=== PATIENT | male | born 1945 | race Caucasian/White ===

== ENCOUNTER → 2016-05-07 | Outpatient (CLI) | payer MEDICARE, OTHER ==
[~2016-05-07] MED LIST: CALMOSEPTINE OINTMENT 3.5 G PACKET TOP ONE
== END ==
LOC: NWCC 08:44
PROVIDERS: ATTEND Surgery
DX: G60.9 Hereditary and idiopathic neuropathy, unspecified (principal); L97.412 Non-pressure chronic ulcer of right heel and midfoot with fat layer exposed
CPT/HCPCS: A6209; A9270; G0463

== ENCOUNTER → 2016-05-28 | Outpatient (CLI) | payer MEDICARE, OTHER | LOC: NWCC 08:55 | PROVIDERS: ATTEND Surgery | DX: G60.9 Hereditary and idiopathic neuropathy, unspecified (principal); L97.412 Non-pressure chronic ulcer of right heel and midfoot with fat layer exposed | CPT/HCPCS: 11055; A6209; A9270 ==

== ENCOUNTER → 2016-06-05 | Outpatient (CLI) | payer MEDICARE, OTHER | LOC: NWCC 10:52 | PROVIDERS: ATTEND Internal Medicine | DX: G90.09 Other idiopathic peripheral autonomic neuropathy (principal); L97.412 Non-pressure chronic ulcer of right heel and midfoot with fat layer exposed; B96.89 Other specified bacterial agents as the cause of diseases classified elsewhere; L53.9 Erythematous condition, unspecified | CPT/HCPCS: 87070; 87075; 87077; 87147; 87186; 87205; A6209; A9270; G0463 ==

== ENCOUNTER 2017-06-24 12:58 | Inpatient (IN) ==
[2017-06-24] MEDS ORDERED: ONDANSETRON 4 MG/2 ML INJECTION IVP PRN (13:04)
[2017-06-24] MEDS ORDERED: METOCLOPRAMIDE 10mg/2ml INJECTION IVP PRN (14:15)
--- NOTE | 2017-06-24 14:54 | General Surgery Consult Note ---
Consult date: 06/25/17 Attending Physician: Alonso Ferrell MD [facility] Patient Stated Medical History Peripheral Neuropathy Yes: knees down and hands Cataracts Yes Hypertension Yes Other Cardiology Yes: chamber ? Gastroesophageal Reflux Yes Disease Anemia Yes Other Musculoskeletal Yes: neuropathy, RLS Herpes Yes: 8 10 yrs ago Clinic Medical History (Last Updated 06/09/17 @ 16:47 by DEJAN Bland) Hypothyroidism (Chronic Medical) Anemia (Chronic Medical) Coronary arteriosclerosis (Chronic Medical) Diabetes (Chronic Medical) HTN (hypertension) (Chronic Medical) Hyperlipidemia (Chronic Medical) Hypogonadism (Chronic Medical) Insomnia (Chronic Medical) Mitral valve disorder (Chronic Medical) Peripheral nerve disease (Chronic Medical) Spinal stenosis (Chronic Medical) Vitamin D deficiency (Chronic Medical) Surgical History: -Cholecystectomy, choledocholithiasis transferred to [facility] for surgery 02/12/2016. -Foot/Toes Procedure, Removal of lateral sesamoid bone right 1st TMP joint, 10/2002 Dr. Martínez. -Right ankle surgery 2012 Dr. Kathy Hill. -Hammertoe operations May 2013 Dr. Kathy Hill. -Left second third and fifth flexor tenotomy and pinning, left fourth toe debridement, and additional work 10/07/2014 Dr. Kathy Hill. -Left first metatarsophalangeal arthrodesis 02/01/2015 Dr. Kathy Hill. -Additional left foot debridements 02/22/2015 Dr. Kathy Hill. -Left metatarsophalangeal joint debridement and delayed primary closure 02/27/2015 Dr. Kathy Hill with prior diagnosis of pseudomonas osteomyelitis. -Left Inguinal Hernia Repair Bessie. -Right inguinal hernia repair 09/14/2012 Sahil. - Colonoscopy internal hemorrhoids 10/20/2000 Dr. Mendoza. -Colonoscopy, internal and external hemorrhoids and diverticulosis 02/12/2011 Dr. La. -Heart catheter, mitral valve prolapse and minimal coronary artery disease 10/22/1995, Dr. Avni Foster, [facility]. Family History: Family History (Last Updated 06/09/17 @ 16:53 by DEJAN Bland) Father Coronary arteriosclerosis Mother Stroke Maternal Grandfather Prostate cancer Paternal Grandfather Diabetes - Social History Smoking status: Former smoker Household members: spouse Medications Home Medications Medication Instructions Recorded Confirmed Type Bystolic (nebivolol) 5 mg tablet 5 mg PO DAILY 06/09/17 06/24/17 History Lipitor (atorvastatin) 20 mg tablet 20 mg PO DAILY 06/09/17 06/24/17 History Neurontin (gabapentin) 600 mg 1,200 mg PO HS tab 06/09/17 06/24/17 History tablet [place] 5 mg-acetaminophen 325 mg 1 tab PO Q6H PRN 06/09/17 06/24/17 History tablet Prilosec (Omeprazole) 40 mg 40 mg PO DAILY 06/09/17 06/24/17 History capsule,delayed release Testone CIK (testosterone 200 mg IM Q2WKS each 06/09/17 06/24/17 History cypionate) 200 mg/mL intramuscular kit Vasotec (enalapril maleate) 20 mg 20 mg PO DAILY 06/09/17 06/24/17 History tablet Voltaren (Diclofenac) 1 % topical 2 g TOP QID 06/09/17 06/24/17 History gel aspirin 81 mg tablet,delayed 81 mg PO DAILY 06/09/17 06/24/17 History release felodipine ER 5 mg tablet,extended 5 mg PO DAILY 06/09/17 06/24/17 History release 24 hr fentanyl 50 mcg/hr transdermal 1 patch TD Q72H 06/09/17 06/24/17 History patch levothyroxine 200 mcg tablet 200 mcg PO DAILY 06/09/17 06/24/17 History multivitamin,ip-ogho-bwjoxasm 1 tab PO DAILY 06/09/17 06/24/17 History tablet pramipexole 1 mg tablet 1 mg PO HS 06/09/17 06/24/17 History sildenafil 100 mg tablet 100 mg PO DAILY PRN 06/09/17 06/24/17 History Gabapentin [Gabapentin] 300 mg PO TID 06/12/17 06/24/17 History Levofloxacin [Levaquin] 750 mg PO DAILY 06/12/17 06/24/17 History Metoclopramide HCl [Reglan] 10 mg PO QID #30 tab 06/12/17 06/24/17 Rx metoclopramide 10 mg tablet 10 mg PO QID 30 Days #120 tab 06/20/17 06/20/17 Rx Allergies Allergy/AdvReac Type Severity Reaction Status Date / Time No Known Allergies Allergy Verified 06/12/17 18:36 Review of Systems 10-point ROS: negative except for HPI and the following: - General General: Present: chills, unexplained weight loss, other (fatigue) - Eyes/Ears/Nose/Throat Eyes: Present: vision problems (corrective lenses) - Respiratory Respiratory: Present: difficulty breathing (with exertion) - Gastrointestinal Gastrointestinal: Present: nausea, diarrhea, vomiting, other (GERD) - Genitourinary Additional comments: Slow stream - Musculoskeletal Musculoskeletal: Present: joint pain - Neurological Neurological: Present: muscle weakness, numbness - Vital Signs Last Vital Signs Temp 96.9 F 06/24/17 14:01 Pulse 62 06/24/17 14:01 Resp 18 06/24/17 14:01 BP 142/80 H 06/24/17 14:01 Pulse Ox 95 06/24/17 14:01 - Laboratory Result Diagrams: 06/24/17 14:16 06/24/17 14:16 General Surgery Results - Results Labs: 06/24/17 14:16 06/24/17 14:16
--- NOTE | 2017-06-24 14:56 | History & Physical Report ---
History of Present Illness Date: 06/24/17 Chief complaint: abdominal pain HPI: Jori Cloud is a pleasant 71-year-old male patient of Dr. Baxter who was directly admitted today, 06/24/17, for further evaluation of abdominal pain. He reports that over the past 3 weeks, he has had a 15 pound, unintentional weight loss. He also reports epigastric fullness with frequent nausea, vomiting and diarrhea. He denies any abdominal pain but does admit to increased bloating and distention. He also states that he has had increased episodes of hiccups and belching. As result of his abdomen feeling "full all the time" as well as his nausea and vomiting, he has had very poor oral intake. He denies any other illnesses. No fevers, chills, chest pain, shortness of breath or dysuria. CT abdomen/pelvis on 06/06/17 revealed significant food products in the stomach concerning for delayed emptying. He was then seen in clinic with Dr. Baxter on 06/20/17 and scheduled for an upper endoscopy for 06/26/17. Subsequently, he returned to clinic this morning, 06/24/17, for re-evaluation of his chronic right heel ulceration and Dr. Baxter expressed concern because of "how bad he looked", requesting that he be admitted to the hospital. He has been following with Dr. Baxter recently for treatment of a chronic right heel ulceration for which he has been on prolonged treatment of various antibiotics, which are all now complete. Dr. Ferrell was contacted and he was directly admitted to observation status for further evaluation including imagining and endoscopy. He is seen immediately upon arrival in his room with his and nurse at the bedside. He denies any current complaints or concerns. He does admit to some dry heaving today but denies any diarrhea or vomiting. He states that his symptoms have improved slightly with the addition of Reglan on 06/20/17. Labs were obtained on arrival and revealed mild anemia (Hgb 11.3) and otherwise unremarkable. Review of Systems All systems PM: 10-point ROS was reviewed, no additional remarkable complaints except - Constitutional Constitutional: Present: weakness, weight loss. Absent: chills, fatigue, fever( s) Comments: Decreased appetite with poor oral intake; upper abdominal fullness. - EENMT Eyes: Absent: change in vision, photophobia Ears: Absent: ear pain Balance: Absent: vertigo, falling to one side Nose: Absent: nosebleeds Mouth/Throat: Present: dry mouth. Absent: sore throat, changes in swallowing - Cardiovascular Cardiovascular: Absent: chest pain, palpitations, syncope, dyspnea on exertion, orthopnea, edema Rhythm: Absent: regular rhythm Vascular: Absent: pallor of an extermity, pedal edema, unilateral swelling - Respiratory Respiratory: Absent: cough, dyspnea, hemoptysis, dyspnea on exertion, wheezing - Gastrointestinal Gastrointestinal: Present: change in bowel habits, diarrhea, dyspepsia, early satiety, nausea, vomiting. Absent: abdominal pain, dysphagia, hematemesis, melena - Genitourinary Genitourinary: Absent: dysuria, flank pain, hematuria - Musculoskeletal Musculoskeletal: Present: muscle weakness. Absent: abnormal gait, back pain, deformity - Integumentary/Breasts Integumentary: Absent: rash - Neurological Neurological: Present: weakness. Absent: abnormal gait, abnormal movements, abnormal speech, dizziness, focal weakness - Psychiatric Psychiatric: Absent: anxiety, depression - Endocrine Endocrine: Absent: flushing, heat intolerance, palpitations - Hematologic/Lymphatic Hematologic/Lymphatic: Absent: easy bruising - Allergic/Immunologic Allergic/Immunologic: Absent: seasonal rhinorrhea Past Medical History Medical History: Medical History (Last Updated 06/24/17 @ 15:00 by IRMA Day) Chronic heel ulcer GERD (gastroesophageal reflux disease) Peripheral neuropathy, idiopathic Anemia Coronary arteriosclerosis HTN (hypertension) Hyperlipidemia Hypogonadism Hypothyroidism Insomnia Mitral valve disorder Spinal stenosis Vitamin D deficiency Surgical History: Cholecystectomy, 02/12/2016. Foot/Toes Procedure, Removal of lateral sesamoid bone right 1st TMP joint, 10/2002. Left Inguinal Hernia Repair 12/16/2014 Bessie. Hernia Repair, Sahil. Colonoscopy, 02/12/2011 Dr. La. Colonoscopy, 10/20/2000. Cardiac Surgery 10/22/1995, Dr. Avni Foster, [facility]. Family History: Family History Father - , 60 Coronary arteriosclerosis MS Mother - , 98 Stroke Maternal Grandfather Prostate cancer Paternal Grandfather Diabetes Family History: As Above - Social History Smoking status: Former smoker (quit 1994) Substance use type: does not use Alcohol intake frequency: holidays/special occasions only Housing: house Household members: spouse service: No Current occupational status: retired Does patient use chewing tobacco?: No Current residence: Apartment/Private Home Social history: PCP - Dr. Hewitt. Medications Home Medications Medication Instructions Recorded Confirmed Type Bystolic (nebivolol) 5 mg tablet 5 mg PO DAILY 06/09/17 06/24/17 History Lipitor (atorvastatin) 20 mg tablet 20 mg PO DAILY 06/09/17 06/24/17 History Neurontin (gabapentin) 600 mg 1,200 mg PO HS tab 06/09/17 06/24/17 History tablet [place] 5 mg-acetaminophen 325 mg 1 tab PO Q6H PRN 06/09/17 06/24/17 History tablet Prilosec (Omeprazole) 40 mg 40 mg PO DAILY 06/09/17 06/24/17 History capsule,delayed release Testone CIK (testosterone 200 mg IM Q2WKS each 06/09/17 06/24/17 History cypionate) 200 mg/mL intramuscular kit Vasotec (enalapril maleate) 20 mg 20 mg PO DAILY 06/09/17 06/24/17 History tablet Voltaren (Diclofenac) 1 % topical 2 g TOP QID 06/09/17 06/24/17 History gel aspirin 81 mg tablet,delayed 81 mg PO DAILY 06/09/17 06/24/17 History release felodipine ER 5 mg tablet,extended 5 mg PO DAILY 06/09/17 06/24/17 History release 24 hr fentanyl 50 mcg/hr transdermal 1 patch TD Q72H 06/09/17 06/24/17 History patch levothyroxine 200 mcg tablet 200 mcg PO DAILY 06/09/17 06/24/17 History multivitamin,hh-noik-tecztodf 1 tab PO DAILY 06/09/17 06/24/17 History tablet pramipexole 1 mg tablet 1 mg PO HS 06/09/17 06/24/17 History sildenafil 100 mg tablet 100 mg PO DAILY PRN 06/09/17 06/24/17 History Gabapentin [Gabapentin] 300 mg PO TID 06/12/17 06/24/17 History Levofloxacin [Levaquin] 750 mg PO DAILY 06/12/17 06/24/17 History Metoclopramide HCl [Reglan] 10 mg PO QID #30 tab 06/12/17 06/24/17 Rx metoclopramide 10 mg tablet 10 mg PO QID 30 Days #120 tab 06/20/17 06/20/17 Rx Allergies Allergy/AdvReac Type Severity Reaction Status Date / Time No Known Allergies Allergy Verified 06/12/17 18:36 Exam Vital Signs: Temperature 96.9 F 06/24/17 14:01 Pulse Rate 62 06/24/17 14:01 Respiratory Rate 18 06/24/17 14:01 Blood Pressure 142/80 H 06/24/17 14:01 Pulse Oximetry 95 06/24/17 14:01 Height/Weight/BMI: Height 5 ft 8 in Weight 159 lb 13.362 oz Body Mass Index 24.3 Comments: Patient sitting up in bed with his and nursing at the bedside. - Constitutional Present: no acute distress, well nourished, well developed, thin, cooperative - Routine HEENT Exam Head: Present: normocephalic, atraumatic Eye: Present: PERRL. Absent: conjunctival icterus ENT: Present: mucous membranes dry (tacky) - Routine Neck Exam Present: supple, full ROM, trachea midline - Routine Chest/Breast/Axilla Exam Chest wall: Absent: tenderness, pacemaker - Routine Respiratory Exam Present: CTA bilaterally. Absent: respiratory distress, wheezes - Routine Cardiovascular Exam Present: RRR, S1, S2, murmur - Routine Abdominal Exam Present: soft, normoactive bowel sounds, non tender, distended. Absent: rebound , guarding - Routine Extremities Exam Present: edema (trace), full ROM, pulses intact. Absent: cyanosis - Routine Back/Spine/Pelvis Exam Back/Spine: Present: full ROM. Absent: vertebral tenderness - Routine Skin Exam Present: dry, warm Comments: Afebrile; bandage to right heel present, clean and dry covering chronic ulceration - not visualized on exam. - Routine Neurological Exam Present: alert, oriented X3, CN II-XII intact, moving all extremities, hearing grossly intact, normal speech - Routine Psychiatric Exam Present: normal affect, cooperative, good insight, good judgment Results - Labs CBC & Chem 7: 06/24/17 14:16 06/24/17 14:16 Assessment and Plan Assessment and Plan: Assessment Nausea and vomiting - Questionable gastroparesis with delayed gastric emptying vs gastric outlet obstruction. Unintentional weight loss Idiopathic peripheral neuropathy Hypothyroidism Chronic anemia CAD Hypertension Hyperlipidemia Hypogonadism Insomnia Mitral valve disorder Spinal stenosis Vitamin D deficiency GERD Chronic right heel ulceration Plan Admit to observation status under the care of Dr. Ferrell. Consult Dr. Baxter for surgical evaluation and anticipated endoscopy. NPO status in anticipation of possible surgical evaluation. Initiate NS 100cc/ hr for hydration. Will obtain upper GI/KUB small bowel series per Dr. Baxter with NG tube placement. Labs on admission relatively unremarkable. Hgb 11.3. Will check B12. Monitor closely. No signs of bleeding on exam. History of anemia. Patient denies history of diabetes. Will check A1c now in addition to TSH. Monitor BGMs and sliding scale insulin as needed. Zofran and Reglan for nausea/vomiting. CRP, lipase and TSH pending. Prealbumin borderline mild protein calorie malnutrition. Consider dietary consult prior to discharge. Will continue home medications. Hold home ASA in anticipation of possible endoscopy and current anemia. Monitor blood pressure closely. Recheck labs in AM to monitor blood counts, electrolytes and renal function. Upon discharge, patient's care will be returned to his PCP, Dr. Hewitt and Dr. Baxter. Patient requests to be a Full CODE. DVT Prophylaxis: SCD's GI Prophylaxis: Protonix Resuscitation Status: Full Code - Time spent with patient Time with patient PN: 70 minutes - Physician Narrative Physician: Alonso Ferrell MD Narrative: Date: 06/24/17 Time: 1705 Have independently interviewed and examined pt. Chart reviewed. Case discussed with Dr Baxter and my PA. Care plan developed with my supervision; agree with above. Over the past 3 weeks has had persistent nausea with vomiting. Feels full to ab. No appetite. With oral intake, feels like he fills up very quick and then developed emesis. Typically ab feels less full/bloated post emesis. Passing stools, notes less flatus. Burping more. Hiccups for the last week. Reports 15 pound weight loss-clothes not fitting well. Urinating as normal. Not SOA, but harder to take deep breath due to ab fullness. No f/c. Feeling more tired, weak , and rund down in general--less strength since eating less. Lungs: decreased, no distress CV: regular AB: soft slight distention BS decreased EXT: trace edema MSE: awake alert appropriate Plan: OBS admission. IVF to help maintain hydration. Protonix IV for GI protection. Consult with Dr Baxter - likely need EGD, will check UGI/SBFT. NG ordered by Dr Baxter for bowel decompression. Monitor lab. Hospital Course Summary Disclaimer: The visit summary below is not to be considered part of the above Progress Note. Hospital Course: Plan - 06/24/17: Admit to observation status under the care of Dr. Ferrell. Consult Dr. Baxter for surgical evaluation and anticipated endoscopy. NPO status in anticipation of possible surgical evaluation. Initiate NS 100cc/ hr for hydration. Will obtain upper GI/KUB small bowel series per Dr. Baxter with NG tube placement. Labs on admission relatively unremarkable. Hgb 11.3. Will check B12. Monitor closely. No signs of bleeding on exam. History of anemia. Patient denies history of diabetes. Will check A1c now in addition to TSH. Monitor BGMs and sliding scale insulin as needed. Zofran and Reglan for nausea/vomiting. CRP, lipase and TSH pending. Prealbumin borderline mild protein calorie malnutrition. Consider dietary consult prior to discharge. Will continue home medications. Hold home ASA in anticipation of possible endoscopy and current anemia. Monitor blood pressure closely. Recheck labs in AM to monitor blood counts, electrolytes and renal function. Upon discharge, patient's care will be returned to his PCP, Dr. Hewitt and Dr. Baxter. Patient requests to be a Full CODE.
[2017-06-24] MEDS: NS 1,000 ML IV SCH (15:01)
[2017-06-24] MEDS ORDERED: DIATRIZOATE MEGLUMINE/SOD. (66%/10%) 120ml SOLN ONE (15:03)
[2017-06-24] MEDS: GABAPENTIN 300 MG CAPSULE PO SCH (17:13)
[2017-06-24] MEDS: PANTOPRAZOLE 40 MG INJECTION IVP SCH (17:26)
[2017-06-24] MEDS: METOCLOPRAMIDE 10mg/2ml INJECTION IVP SCH ×2 (17:30→21:46)
--- NOTE | 2017-06-24 17:30 | Consultation ---
DATE OF CONSULTATION 06/24/2017 FINDINGS Mr. Cloud was seen earlier today through the wound center in regards to chronic ulcer involving his foot. I had seen the patient last week in my surgical practice as a result of his history for ongoing nausea, vomiting and significant unintentional weight loss. The patient informed me this morning that he was "not doing well". He informed me that over the weekend he had an episode of fairly significant nausea and vomiting. He states that he was able to eat "a little bit" over the weekend. He states that recently he has been having a fair amount of ongoing hiccups. He informs me that he was feeling significantly worse. He denied, however, severe abdominal pain. He states that he was having more "heartburn and dry heaves". PAST MEDICAL HISTORY Performed by my nurse practitioner, Ehsan Glover. PAST SURGICAL HISTORY Performed by my nurse practitioner, Ehsan Glover. MEDICATIONS Performed by my nurse practitioner, Ehsan Glover. ALLERGIES Performed by my nurse practitioner, Ehsan Glover. SOCIAL HISTORY Performed by my nurse practitioner, Ehsan Glover. FAMILY HISTORY Performed by my nurse practitioner, Ehsan Glover. REVIEW OF SYSTEMS Performed by my nurse practitioner, Ehsan Glover. PHYSICAL EXAMINATION GENERAL: Mr. Cloud is a 71-year-old gentleman who does appear fairly ill. He has become quite cachectic over the last 4-6 weeks. VITALS: Temperature 96.9. Pulse 62. Respirations 18. Blood pressure 142/80. SaO2 95% on room air. HEENT: Normocephalic. Pupils are equally round and react to light and accommodation. NECK: Supple without lymphadenopathy. CHEST: Clear to auscultation bilaterally. HEART: Regular rate and rhythm. Normal S1, S2, without gallops, murmurs or clicks. ABDOMEN: Palpation of the abdomen reveals it to be soft and nontender. I do not appreciate any evidence for hepatosplenomegaly nor abnormal masses. EXTREMITIES: Without clubbing, cyanosis, or edema. NEURO: Cranial nerves II-XII grossly intact. Patient without focal, motor, or sensory deficits. ASSESSMENT 71-year-old gentleman with persistent nausea, vomiting, and unintentional weight loss. PLAN Proceed with Gastrografin upper GI and small bowel follow-through today. I had reviewed all of his recent radiographic and laboratory evaluation during a recent office visit. It was my clinical intuition that the patient either had gastric outlet obstruction or obstructive pattern involving his proximal small bowel versus that of gastroparesis. The patient does have a known history for idiopathic peripheral neuropathy. He was placed on Reglan during a recent ER visit which did result in improvement of some of his symptomatology. To rule out a gastric outlet obstruction or obstruction involving the proximal small bowel, I would recommend that today we go ahead and place some Gastrografin per his NG and obtain upper GI/small bowel follow-through. Patient at this time is without an acute surgical abdomen. Although his prior CT scans and radiographic evaluation did not reveal any evidence for underlying malignant process, given his history of significant weight loss and his general decline, I am concerned that he may have underlying neoplastic process that was not identified upon prior CT scan/radiograph evaluation. Again we will await his upcoming radiographic results and proceed accordingly. Ultimately the patient may require direct visualization/esophagogastroduodenoscopy. Additionally I have reviewed lab work that has been obtained. CBC was obtained and his hemoglobin was low at 11.3. Lipase was obtained and pending at time of dictation. Prealbumin was obtained and found to be low at 15.7. Will go ahead and treat empirically for peptic ulcer disease as well and add Protonix to his current admission orders. CESAR
[2017-06-24] MEDS: DICLOFENAC 1% TOP GEL 100gm TP SCH ×2 (17:32→21:47)
--- NOTE | 2017-06-24 20:03 | XRay Report ---
Indication: abd pain N/V PROCEDURE: XR small bowel follow through: Encounter: Initial Comparison: CT abdomen dated June 06, 2017 Findings: Medication Aide radiographs show a distended stomach with a nasogastric tube in place with the tip and side port projecting over the body of the stomach. Scattered nonobstructive bowel gas pattern with moderate stool in the colon. Degenerative change and scoliosis in the spine. Water-soluble contrast was administered through the nasogastric tube followed with serial abdominal radiographs. This demonstrates progression from the stomach to the small bowel within the first 30 minutes of imaging. There is progression through nondilated small bowel loops reaching the colon by 90 min. after administration. Contrast extends through the transverse colon by 2 hours and 30 minutes of imaging. Impression: Normal intestinal transit time. .
[2017-06-24] MEDS: HYDROCODONE/APAP 5mg/325mg TABLET PO PRN (21:48)
[2017-06-24] MEDS: PRAMIPEXOLE 1 MG TABLET PO SCH (21:51)
[2017-06-24] MEDS: GABAPENTIN 600 MG TABLET PO SCH (22:25)
[2017-06-25] MEDS: NS 1,000 ML IV SCH ×2 (00:20→10:43)
[2017-06-25] MEDS: SORE THROAT SPRAY 20ml PO PRN ×5 (04:35→20:17)
[2017-06-25] MEDS ORDERED: OMEPRAZOLE 20 MG CAPSULE PO SCH (06:30)
--- NOTE | 2017-06-25 07:52 | General Surgery Progress Note ---
Subjective Patient reports: feels better (since the NG tube was placed and about 750 ML returned upon initial placement.), no bowel movement (no BM today but states he had bowel movement yesterday) Narrative: Denies abdominal pain, chest pain. The NG tube is quite irritating and he would love to get it out but realizes the risk of having to put him back in if that were to be discontinued too soon. - Vital Signs Last Vital Signs Temp 97.3 F 06/25/17 04:30 Pulse 72 06/25/17 04:30 Resp 16 06/25/17 04:30 BP 144/74 H 06/25/17 04:30 Pulse Ox 96 06/25/17 04:30 - Laboratory Result Diagrams: 06/25/17 07:14 06/24/17 14:16 Labs for today is pending, lipase yesterday was normal - Radiology Upper GI with small bowel follow-through performed yesterday Findings: Technical Lead radiographs show a distended stomach with a nasogastric tube in place with the tip and side port projecting over the body of the stomach. Scattered nonobstructive bowel gas pattern with moderate stool in the colon. Degenerative change and scoliosis in the spine. Water-soluble contrast was administered through the nasogastric tube followed with serial abdominal radiographs. This demonstrates progression from the stomach to the small bowel within the first 30 minutes of imaging. There is progression through nondilated small bowel loops reaching the colon by 90 min. after administration. Contrast extends through the transverse colon by 2 hours and 30 minutes of imaging. Impression: Normal intestinal transit time. - Abnormal Exam Cardiovascular: murmur Abdominal: other (NG in place with 750 ML out documented currently izquierdo-colored and would include a portion of the Gastrografin) - Normal Exam General: awake, alert, oriented Respiratory: clear bilaterally, no labored breathing Abdominal: BS normo active x4, no guarding, non-tender Psychiatric: normal affect Additional Normal Findings: Right heel dressing intact and not removed Assessment and Plan (1) Nausea and vomiting in adult Current Visit: Yes Status: Acute (2) Weight loss, unintentional Current Visit: Yes Status: Acute Plan: Upper GI small bowel follow-through performed yesterday did not reveal any area of stricture. Transit time was normal. We'll await Dr. Baxter's recommendation, possible EGD later today or tomorrow. Hospital Course Summary Disclaimer: The visit summary below is not to be considered part of the above Progress Note. Hospital Course: Plan - 06/24/17: Admit to observation status under the care of Dr. Ferrell. Consult Dr. Baxter for surgical evaluation and anticipated endoscopy. NPO status in anticipation of possible surgical evaluation. Initiate NS 100cc/ hr for hydration. Will obtain upper GI/KUB small bowel series per Dr. Baxter with NG tube placement. Labs on admission relatively unremarkable. Hgb 11.3. Will check B12. Monitor closely. No signs of bleeding on exam. History of anemia. Patient denies history of diabetes. Will check A1c now in addition to TSH. Monitor BGMs and sliding scale insulin as needed. Zofran and Reglan for nausea/vomiting. CRP, lipase and TSH pending. Prealbumin borderline mild protein calorie malnutrition. Consider dietary consult prior to discharge. Will continue home medications. Hold home ASA in anticipation of possible endoscopy and current anemia. Monitor blood pressure closely. Recheck labs in AM to monitor blood counts, electrolytes and renal function. Upon discharge, patient's care will be returned to his PCP, Dr. Hewitt and Dr. Baxter. Patient requests to be a Full CODE.
[2017-06-25] MEDS ORDERED: PANTOPRAZOLE 40 MG INJECTION IVP SCH (09:00)
[2017-06-25] MEDS: PANTOPRAZOLE 40 MG INJECTION IVP SCH (09:04)
[2017-06-25] MEDS: METOCLOPRAMIDE 10mg/2ml INJECTION IVP SCH ×4 (09:08→20:40)
[2017-06-25] MEDS: DICLOFENAC 1% TOP GEL 100gm TP SCH ×5 (09:12→20:54)
[2017-06-25] MEDS: GABAPENTIN 300 MG CAPSULE PO SCH ×4 (09:12→17:21)
[2017-06-25] MEDS: MULTI-VITAMIN + MINERAL TABLET PO SCH (09:13)
[2017-06-25] MEDS: FELODIPINE 5 MG PO SCH (09:13)
--- NOTE | 2017-06-25 12:25 | Progress Note ---
- Date 06/25/17 Subjective: F/U: Nausea, vomiting, weight loss, questionable gastroparesis. Jroi is seen while resting in bed, playing on his phone. He reports that he' s doing ok and denies any nausea or vomiting. He does complain of mild discomfort to his left upper abdomen which he feels is due to gas. NG is in place and actively draining with suction. Labs were relatively unremarkable. Upper GI and small bowel x-ray revealed normal intestinal transit time. Dr. Baxter plans to do an EGD either later today or tomorrow. As he is unable to maintain oral hydration, he will be changed to inpatient status. Objective Vital signs: Temperature 97.3 F 06/25/17 04:30 Pulse Rate 72 06/25/17 04:30 Respiratory Rate 16 06/25/17 04:30 Blood Pressure 144/74 H 06/25/17 04:30 Pulse Oximetry 96 06/25/17 04:30 Height/Weight/BMI: Height 5 ft 8 in Weight 159 lb 13.362 oz Body Mass Index 24.3 Comments: Resting in bed, playing on his phone. - Constitutional Present: no acute distress, well nourished, well developed, cooperative - Routine HEENT Exam Head: Present: normocephalic, atraumatic Eye: Present: PERRL. Absent: conjunctival icterus Comments: NG tube in place with active suction. - Routine Respiratory Exam Present: CTA bilaterally. Absent: respiratory distress, wheezes - Routine Cardiovascular Exam Present: RRR, S1, S2, murmur - Routine Abdominal Exam Present: soft, normoactive bowel sounds, non tender, distended - Routine Extremities Exam Present: edema (trace), non tender, full ROM, pulses intact - Routine Back/Spine/Pelvis Exam Back/Spine: Present: full ROM. Absent: vertebral tenderness - Routine Musculoskeletal Exam Musculoskeletal: Present: no clubbing or cyanosis, moving extremities well - Routine Skin Exam Present: intact, dry, warm Comments: afebrile. - Routine Neurological Exam Present: alert, oriented X3, CN II-XII intact, moving all extremities, hearing grossly intact, normal speech - Routine Lymphatic Exam Lymphatic: Absent: lymphedema - Routine Psychiatric Exam Present: cooperative Results - Labs CBC & Chem 7: 06/25/17 07:14 06/25/17 07:14 - Impressions Date of Exam: 06/24/17 Type of Exam(s): XR small bowel follow through Reason for Exam(s): abd pain N/V Findings: Water Regulator And Valve Repairer radiographs show a distended stomach with a nasogastric tube in place with the tip and side port projecting over the body of the stomach. Scattered nonobstructive bowel gas pattern with moderate stool in the colon. Degenerative change and scoliosis in the spine. Water-soluble contrast was administered through the nasogastric tube followed with serial abdominal radiographs. This demonstrates progression from the stomach to the small bowel within the first 30 minutes of imaging. There is progression through nondilated small bowel loops reaching the colon by 90 min. after administration. Contrast extends through the transverse colon by 2 hours and 30 minutes of imaging. Impression: Normal intestinal transit time. Assessment and Plan Assessment and Plan: Assessment Nausea and vomiting - Questionable gastroparesis with delayed gastric emptying vs gastric outlet obstruction. Unintentional weight loss Idiopathic peripheral neuropathy Hypothyroidism Chronic anemia CAD Hypertension Hyperlipidemia Hypogonadism Insomnia Mitral valve disorder Spinal stenosis Vitamin D deficiency GERD Chronic right heel ulceration Plan Patient unable to maintain oral hydration. Patient status changed to inpatient. NG tube was placed with suction. He remains NPO. XR small bowel follow through revealed normal intestinal transit time. Dr. Baxter planning on performing an EGD either later today or tomorrow. Continue NS 100cc/hr for hydration. Labs stable. B12 pending. Lipase normal. CRP <5. TSH elevated at 9.43. Currently on 200mcg Synthroid. Will check T3 and T4 and consider increasing dosage. Patient denies history of diabetes. A1c 5.4%. Zofran and Reglan for nausea/vomiting. Prealbumin borderline mild protein calorie malnutrition. Consider dietary consult prior to discharge. Recheck labs in AM to monitor blood counts, electrolytes and renal function. DVT Prophylaxis: SCD's GI Prophylaxis: Protonix Resuscitation Status: Full Code - Time spent with patient Time with patient PN: 25 minutes - Physician Narrative Physician: Alonso Ferrell MD Narrative: Date: 06/25/17 Time: 1610 Have independently interviewed & examined pt. Chart reviewed. Case D/W with CM & my PA. Care plan developed with my supervision; agree with above. Doing okay today. With NG decompression, not feeling nauseated. Starting to feel hungry again. No ab pain or discomfort. Breathing well-not F/C. Has been walking in halls - helps him to feel less weak and to keep his joints limber. Agreeable to EGD tomorrow. Lungs: decreased, no distress CV: regular AB: soft flat nd EXT: thin, no edema, SCD in place. MSE: awake alert appropriate Plan: Continue Bowel decompression with NG - symptoms improving. SBFT unremarkable - anticipate EGD tomorrow. Will change IVF to NS with 20KCl at 75 as potassium showing trend down (likely due to loss of gastric content). Encourage ambulation. Monitor lab. Will change patient's admission status to Inpatient due to persistent difficulty in maintaining oral intake. Hospital Course Summary Disclaimer: The visit summary below is not to be considered part of the above Progress Note. Hospital Course: 06/24/17 Admit to observation status under the care of Dr. Ferrell. Consult Dr. Baxter for surgical evaluation and anticipated endoscopy. NPO status in anticipation of possible surgical evaluation. Initiate NS 100cc/ hr for hydration. Will obtain upper GI/KUB small bowel series per Dr. Baxter with NG tube placement. Labs on admission relatively unremarkable. Hgb 11.3. Will check B12. Monitor closely. No signs of bleeding on exam. History of anemia. Patient denies history of diabetes. Will check A1c now in addition to TSH. Monitor BGMs and sliding scale insulin as needed. Zofran and Reglan for nausea/vomiting. CRP, lipase and TSH pending. Prealbumin borderline mild protein calorie malnutrition. Consider dietary consult prior to discharge. Will continue home medications. Hold home ASA in anticipation of possible endoscopy and current anemia. Monitor blood pressure closely. Recheck labs in AM to monitor blood counts, electrolytes and renal function. Upon discharge, patient's care will be returned to his PCP, Dr. Hewitt and Dr. Baxter. Patient requests to be a Full CODE. 06/25/17 Patient unable to maintain oral hydration. Patient status changed to inpatient. NG tube was placed with suction. He remains NPO. XR small bowel follow through revealed normal intestinal transit time. Dr. Baxter planning on performing an EGD either later today or tomorrow. Will change IVF to NS with 20 KCl at 75cc/hr as potassium trending down (likely to gastric losses from NG suction). Labs stable. B12 pending. Lipase normal. CRP <5. TSH elevated at 9.43. Currently on 200mcg Synthroid. Will check T3 and T4 and consider increasing dosage. Patient denies history of diabetes. A1c 5.4%. Zofran and Reglan for nausea/vomiting. Prealbumin borderline mild protein calorie malnutrition. Consider dietary consult prior to discharge. Recheck labs in AM to monitor blood counts, electrolytes and renal function.
[2017-06-25] MEDS: NS with KCL 20 mEq 1,000 ML IV SCH (17:14)
[2017-06-25] MEDS: HYDROCODONE/APAP 5mg/325mg TABLET PO PRN (18:29)
[2017-06-25] MEDS: ATORVASTATIN 20 MG TABLET PO SCH (20:39)
[2017-06-25] MEDS: GABAPENTIN 600 MG TABLET PO SCH (20:40)
[2017-06-26] MEDS: HYDROCODONE/APAP 5mg/325mg TABLET PO PRN ×2 (02:29→23:25)
--- NOTE | 2017-06-26 07:04 | Progress Note ---
DATE 06/25/2017 FINDINGS Mr. Cloud was seen earlier this morning on rounds. He was sleeping when I entered the room. One could see that NG was still present and there was a fair amount of thick material present within the NG canister. Upon awakening, the patient was without complaints. He denied any component of abdominal pain. VITALS: Afebrile. Normotensive. Last vitals include temperature 97.3, pulse 72, respirations 16, blood pressure 144/74, SaO2 96% room air. HEENT: Normocephalic. Pupils are equal, round and reactive to light and accommodation. CHEST: Clear to auscultation bilaterally. HEART: Regular rate and rhythm. Normal S1 and S2 without gallops, murmurs or clicks. ABDOMEN: Scaphoid in its appearance. Palpation of the abdomen revealed it to be soft and completely nontender. No evidence for guarding or rebound. LABORATORY/RADIOGRAPH EVALUATION The patient had a CBC today. Hemoglobin is low at 10.8. Radiographically, he did have an upper GI and small bowel follow-through. Final report was that of a normal intestinal transit time. I did review the films personally and one could see that his stomach, in my opinion, is significantly dilated--perhaps two to three times normal. Detail is not the best given the fact that we utilized Gastrografin. One can, however, see that the contrast did progress into his colon within 2 hours and 30 minutes. Even at this point, however, one could still see that there was contrast remaining within the stomach. ASSESSMENT 71-year-old gentleman with history for significant unintentional weight loss, history for poor p.o. intake, radiographic evidence for a markedly dilated stomach. Differential diagnosis consists of gastric outlet obstruction versus gastric atony. PLAN To further evaluate the stomach to make sure there is no evidence for a pyloric stenosis/gastric outlet obstructive process, it would be my recommendation that tomorrow we proceed with esophagogastroduodenoscopy. Given the significant amount of NG material coming forth from his NG today, I would recommend that we intermittently irrigate his stomach with several hundred cc's of saline and place back to suction in an attempt to "clean out his stomach" so that visualization will be better accomplished tomorrow during upper endoscopy. The above plan will be discussed with the patient and his later this afternoon. CESAR
[2017-06-26] MEDS: NS with KCL 20 mEq 1,000 ML IV SCH (07:25)
[2017-06-26] MEDS: LEVOTHYROXINE 200 MCG TABLET PO SCH (07:39)
[2017-06-26] MEDS: MULTI-VITAMIN + MINERAL TABLET PO SCH (09:29)
[2017-06-26] MEDS: METOCLOPRAMIDE 10mg/2ml INJECTION IVP SCH ×4 (09:30→20:24)
[2017-06-26] MEDS: GABAPENTIN 300 MG CAPSULE PO SCH ×3 (09:30→18:11)
[2017-06-26] MEDS: PANTOPRAZOLE 40 MG INJECTION IVP SCH (09:30)
[2017-06-26] MEDS: FELODIPINE 5 MG PO SCH (09:31)
[2017-06-26] MEDS: DICLOFENAC 1% TOP GEL 100gm TP SCH ×4 (09:33→20:23)
--- NOTE | 2017-06-26 10:17 | Progress Note ---
- Date 06/26/17 Subjective: F/U: Nausea, vomiting, weight loss, questionable gastroparesis. Jori is seen this morning while resting in his recliner, watching TV. He reports that overall, he is doing well. He denies any pain, nausea, vomiting, chest pain, shortness of breath or fevers. He is scheduled to undergo EGD today with Dr. Baxter and remains NPO with NG tube in place on suction. Labs remain unremarkable. Blood pressure slightly elevated at 151/86. Multiple loose stools last night and today. Objective Vital signs: Temperature 96.6 F L 06/26/17 08:00 Pulse Rate 69 06/26/17 08:00 Respiratory Rate 16 06/26/17 08:00 Blood Pressure 151/86 H 06/26/17 08:00 Pulse Oximetry 94 06/26/17 08:00 Height/Weight/BMI: Height 5 ft 8 in Weight 153 lb 7.068 oz Body Mass Index 24.3 Comments: Resting in recliner. - Constitutional Present: no acute distress, well nourished, well developed, cooperative - Routine HEENT Exam Head: Present: normocephalic, atraumatic Eye: Present: PERRL. Absent: conjunctival icterus ENT: Present: mucous membranes moist, oropharynx clear Comments: NG tube in place - Routine Respiratory Exam Present: CTA bilaterally. Absent: respiratory distress, wheezes - Routine Cardiovascular Exam Present: RRR, S1, S2 - Routine Abdominal Exam Present: soft, normoactive bowel sounds, non distended, non tender - Routine Extremities Exam Present: edema (trace), non tender, full ROM, pulses intact - Routine Back/Spine/Pelvis Exam Back/Spine: Present: full ROM. Absent: vertebral tenderness - Routine Musculoskeletal Exam Musculoskeletal: Present: no clubbing or cyanosis, moving extremities well - Routine Skin Exam Present: intact, dry, warm Comments: Afebrile. - Routine Neurological Exam Present: alert, oriented X3, CN II-XII intact, moving all extremities, hearing grossly intact, normal speech - Routine Lymphatic Exam Lymphatic: Absent: lymphedema - Routine Psychiatric Exam Present: normal affect, cooperative Results - Labs CBC & Chem 7: 06/26/17 05:16 06/26/17 05:16 Assessment and Plan Assessment and Plan: Assessment Nausea and vomiting - Questionable gastroparesis with delayed gastric emptying vs gastric outlet obstruction. Unintentional weight loss Idiopathic peripheral neuropathy Hypothyroidism Chronic anemia CAD Hypertension Hyperlipidemia Hypogonadism Insomnia Mitral valve disorder Spinal stenosis Vitamin D deficiency GERD Chronic right heel ulceration Plan Patient awaiting endoscopy with Dr. Baxter planned for today. Maintain NPO status with current NG tube in place on suction for bowel decompression. As he is unable to maintain oral hydration, he was changed to inpatient status on 06/25/17. Continue IV fluids with NS with KCl at 75cc/hr for hydration. Labs unremarkable. Blood pressure persistently elevated. Will increase home felodipine ER to 10mg daily (increased from 5mg daily) and continue home enalapril 20mg daily. Monitor blood pressure closely. TSH elevated at 9.43 on admission. Currently on 200mcg Synthroid. T3 and T4 pending. Consider increasing dosage of Synthroid. Patient denies history of diabetes. A1c 5.4%. Zofran and Reglan for nausea/vomiting. Prealbumin borderline mild protein calorie malnutrition. Consider dietary consult prior to discharge. Recheck labs in AM to monitor blood counts, electrolytes and renal function. Mariaelena Discussed with Dr Baxter post EGD. Finding large prepyloric ulcer resulting in gastric outlet obstruction. He recommends continuing NG for bowel decompression, placing PICC line, and starting TPN. Protonix increased to continuous drip. Hold on Carafate as could potentially worsen outlet obstruction. Will stop diclofenac gel due to ulcer. Assessment Prepyloric ulcer resulting in gastric outlet obstruction. Nausea and vomiting secondary to gastric outlet obstruction. Unintentional weight loss Idiopathic peripheral neuropathy Hypothyroidism Chronic anemia CAD Hypertension Hyperlipidemia Hypogonadism Insomnia Mitral valve disorder Spinal stenosis Vitamin D deficiency GERD Chronic right heel ulceration DVT Prophylaxis: SCD's GI Prophylaxis: Protonix Resuscitation Status: Full Code - Time spent with patient Time with patient PN: 30 minutes - Physician Narrative Physician: Alonso Ferrell MD Narrative: Date: 06/26/17 Time: 1700 Have independently interviewed and examined pt. Chart reviewed. Case discussed with Dr Baxter and my PA. Care plan developed with my supervision; agree with above. Doing well this evening. Tolerated EGD well. Glad to have found the source for his symptoms. Nausea resolved with NG decompression. Breathing well. Lungs: clear bilaterally CV: regular AB: soft nt MSE: awake alert appropriate Plan: Discussed with Dr Baxter post EGD. Finding large prepyloric ulcer resulting in gastric outlet obstruction. He recommends continuing NG for bowel decompression, placing PICC line, and starting TPN. Protonix increased to continuous drip. Hold on Carafate as could potentially worsen outlet obstruction. Will stop diclofenac gel due to ulcer. Check MG and Phos in am due to TPN. Discussed with patient and his . Questions answered. Hospital Course Summary Disclaimer: The visit summary below is not to be considered part of the above Progress Note. Hospital Course: 06/24/17 Admit to observation status under the care of Dr. Ferrell. Consult Dr. Baxter for surgical evaluation and anticipated endoscopy. NPO status in anticipation of possible surgical evaluation. Initiate NS 100cc/ hr for hydration. Will obtain upper GI/KUB small bowel series per Dr. Baxter with NG tube placement. Labs on admission relatively unremarkable. Hgb 11.3. Will check B12. Monitor closely. No signs of bleeding on exam. History of anemia. Patient denies history of diabetes. Will check A1c now in addition to TSH. Monitor BGMs and sliding scale insulin as needed. Zofran and Reglan for nausea/vomiting. CRP, lipase and TSH pending. Prealbumin borderline mild protein calorie malnutrition. Consider dietary consult prior to discharge. Will continue home medications. Hold home ASA in anticipation of possible endoscopy and current anemia. Monitor blood pressure closely. Recheck labs in AM to monitor blood counts, electrolytes and renal function. Upon discharge, patient's care will be returned to his PCP, Dr. Hewitt and Dr. Baxter. Patient requests to be a Full CODE. 06/25/17 Patient unable to maintain oral hydration. Patient status changed to inpatient. NG tube was placed with suction. He remains NPO. XR small bowel follow through revealed normal intestinal transit time. Dr. Baxter planning on performing an EGD either later today or tomorrow. Will change IVF to NS with 20 KCl at 75cc/hr as potassium trending down (likely to gastric losses from NG suction). Labs stable. B12 pending. Lipase normal. CRP <5. TSH elevated at 9.43. Currently on 200mcg Synthroid. Will check T3 and T4 and consider increasing dosage. Patient denies history of diabetes. A1c 5.4%. Zofran and Reglan for nausea/vomiting. Prealbumin borderline mild protein calorie malnutrition. Consider dietary consult prior to discharge. Recheck labs in AM to monitor blood counts, electrolytes and renal function. 06/26/17 OP DAY - EGD with large prepyloric ulcer resulting in gastric outlet obstruction Patient awaiting endoscopy with Dr. Baxter planned for today. Maintain NPO status with current NG tube in place on suction for bowel decompression. Continue IV fluids with NS with KCl at 75cc/hr for hydration. Blood pressure persistently elevated. Will increase home felodipine ER to 10mg daily (increased from 5mg daily) and continue home enalapril 20mg daily. Tolerated EGD well. Finding large prepyloric ulcer resulting in gastric outlet obstruction - source of pt's persistent nausea and vomiting. Dr Baxter recommends continuing NG for bowel decompression, placing PICC line, and starting TPN. Protonix increased to continuous drip. Hold on Carafate as could potentially worsen outlet obstruction. Will stop diclofenac gel secondary to ulcer.
[2017-06-26] MEDS: SORE THROAT SPRAY 20ml PO PRN (10:28)
[2017-06-26] MEDS ORDERED: PROPOFOL 500 MG/50 ML VIAL ONE ×2 (11:02→13:47)
[2017-06-26] MEDS ORDERED: NS 1,000 ML IV SCH (11:15)
[2017-06-26] MEDS ORDERED: LIDOCAINE VISCOUS 2% ORAL LIQUID 15ml ONE (13:49)
[2017-06-26] MEDS ORDERED: LIDOCAINE 2% (100mg/5mL) 5ml PF SDV ONE (13:49)
--- NOTE | 2017-06-26 13:54 | Anesthesia Preoperative Report ---
Anesthesia Preoperative Record - Date and Time Date: 06/26/17 Preoperative Diagnosis: Persistnet n/v Proposed Procedure: egd NPO Since Date: 06/26/17 NPO Since Time: 05:00 Allergies/Adverse Reactions: Allergies Allergy/AdvReac Type Severity Reaction Status Date / Time No Known Allergies Allergy Verified 06/12/17 18:36 - Vital Signs Vital Signs: Temperature 98 F 06/26/17 11:14 Pulse Rate 66 06/26/17 12:19 Respiratory Rate 18 06/26/17 11:14 Blood Pressure 149/79 H 06/26/17 11:14 Pulse Oximetry 96 06/26/17 11:14 Height and Weight: Height 1.73 m Weight 69.6 kg Body Mass Index 24.3 - Medications Inpatient Medications: Current Medications Hydrocodone Bitart/Acetaminophen ([place]ma 5/325) 1 tab PO Q6H PRN PRN Reason: Pain Last Admin: 06/26/17 02:29 Dose: 1 tab Atorvastatin Calcium (Lipitor) 20 mg PO HS [facility] Last Admin: 06/25/17 20:39 Dose: 20 mg Diclofenac Sodium (Voltaren) 1 applic TP QID [facility] Last Admin: 06/26/17 09:33 Dose: Not Given Enalapril Maleate (Vasotec) 20 mg PO DAILY [facility] Last Admin: 06/26/17 09:32 Dose: 20 mg Felodipine (Plendil Er) 10 mg PO DAILY [facility] Fentanyl (Duragesic Patch) 50 mcg TD Q72H [facility] Fentanyl Citrate (Duragesic Patch Removal) 1 removal TD Q3D [facility] Gabapentin (Neurontin) 300 mg PO 0800,1200,1600 [facility] Last Admin: 06/26/17 09:30 Dose: 300 mg Gabapentin (Neurontin) 1,200 mg PO HS [facility] Last Admin: 06/25/17 20:40 Dose: 600 mg Potassium Chloride/Sodium Chloride (Ns With Kcl 20 Meq Premix) 1,000 mls @ 75 mls/hr IV .[id number] [facility] Last Infusion: 06/26/17 12:09 Dose: 0 mls/hr Sodium Chloride (Normal Saline) 1,000 mls @ 50 mls/hr IV .Q20H [facility] Last Admin: 06/26/17 12:17 Dose: 50 mls/hr Levothyroxine Sodium (Synthroid) 200 mcg PO ACB [facility] Last Admin: 06/26/17 07:39 Dose: Not Given Metoclopramide HCl (Reglan) 10 mg IVP QID [facility] Last Admin: 06/26/17 09:30 Dose: 10 mg Multivitamins/Minerals (Therapeutic - M) 1 tab PO DAILY [facility] Last Admin: 06/26/17 09:29 Dose: 1 tab Nebivolol (Bystolic) 5 mg PO DAILY [facility] Last Admin: 06/26/17 09:29 Dose: 5 mg Ondansetron HCl (Zofran) 4 mg IVP Q6H PRN PRN Reason: Nausea Last Admin: 06/25/17 18:29 Dose: 4 mg Pantoprazole Sodium (Protonix Iv) 40 mg IVP DAILY [facility] Last Admin: 06/26/17 09:30 Dose: 40 mg Pramipexole Dihydrochloride (Mirapex) 1 mg PO HS [facility] Last Admin: 06/24/17 21:51 Dose: Not Given Sodium Chloride (Iv Flush) 10 ml IV PRN PRN PRN Reason: Flushing Throat Lozenges (Chloraseptic [place]) 3 spray PO Q2H PRN Last Admin: 06/26/17 10:28 Dose: 3 spray Home Medications: Home Medications Medication Instructions Recorded Confirmed Type Bystolic (nebivolol) 5 mg tablet 5 mg PO DAILY 06/09/17 06/24/17 History Lipitor (atorvastatin) 20 mg tablet 20 mg PO DAILY 06/09/17 06/24/17 History Neurontin (gabapentin) 600 mg 1,200 mg PO HS tab 06/09/17 06/24/17 History tablet Alma 5 mg-acetaminophen 325 mg 1 tab PO Q6H PRN 06/09/17 06/24/17 History tablet Prilosec (Omeprazole) 40 mg 40 mg PO DAILY 06/09/17 06/24/17 History capsule,delayed release Testone CIK (testosterone 200 mg IM Q2WKS each 06/09/17 06/24/17 History cypionate) 200 mg/mL intramuscular kit Vasotec (enalapril maleate) 20 mg 20 mg PO DAILY 06/09/17 06/24/17 History tablet Voltaren (Diclofenac) 1 % topical 2 g TOP QID 06/09/17 06/24/17 History gel aspirin 81 mg tablet,delayed 81 mg PO DAILY 06/09/17 06/24/17 History release felodipine ER 5 mg tablet,extended 5 mg PO DAILY 06/09/17 06/24/17 History release 24 hr fentanyl 50 mcg/hr transdermal 1 patch TD Q72H 06/09/17 06/24/17 History patch levothyroxine 200 mcg tablet 200 mcg PO DAILY 06/09/17 06/24/17 History multivitamin,pt-opxk-fhiyawln 1 tab PO DAILY 06/09/17 06/24/17 History tablet pramipexole 1 mg tablet 1 mg PO HS 06/09/17 06/24/17 History sildenafil 100 mg tablet 100 mg PO DAILY PRN 06/09/17 06/24/17 History Gabapentin [Gabapentin] 300 mg PO TID 06/12/17 06/24/17 History Levofloxacin [Levaquin] 750 mg PO DAILY 06/12/17 06/24/17 History Metoclopramide HCl [Reglan] 10 mg PO QID #30 tab 06/12/17 06/24/17 Rx metoclopramide 10 mg tablet 10 mg PO QID 30 Days #120 tab 06/20/17 06/20/17 Rx Is Patient on Beta Laurie?: No - Medical History Respiratory: DENIES: Sleep Apnea Cardiovascular: Reports: Heart Murmur, Hypertension Gastrointestional: Reports: Nausea or Vomiting Present (some mostly nauesa gerd ), Gastroesophageal Reflux Disease Neuro/Musculoskeletal: Reports: Other (neuropathy, RLS) Renal/Endocrine: Reports: Thyroid Disease, Weight Loss (3 wks 15 to 20 lbs n/v) - Surgical History Neurological Surgeries: Reports: Other (nueropathy) Cardiac Surgeries/Treatments: Reports: Cardiac Catheterization (23 yrs ago) GI Surgery/Treatments: Reports: Cholecystectomy, Hernia Repair (inguinal christiano), EGD (x3) Musculoskeletal Surgery/Tx: Reports: Carpal Tunnel Release (right) Anesthesia Reactions: None Hx Family Anesthesia Reaction: No History of Motion Sickness: No - Social History Smoking Status: Former smoker Hx Chewing Tobacco Use: No Second Hand Exposure: No Substance Use Type: does not use Alcohol Intake Frequency: holidays/special occasions only - Pertinent Findings Laboratory: CBC and BMP 06/26/17 05:16 06/26/17 05:16 BMP 06/26/17 05:16 Sodium 140 Potassium 3.7 Chloride 104 Carbon Dioxide 25 BUN 7.0 L Creatinine 0.9 Glucose 76 Calcium 8.6 EKG: Sinus Rhythm - Physical Exam Respiratory Exam: Present: lungs clear Cardiovascular Exam: Present: regular rate and rhythm, systolic murmur - Airway Assessment Mallampati Score: I TMD: 3 Fingerbreadths Neck Extension: good Teeth: chipped teeth/crowns Overall Assessment: no airway concerns - ASA ASA Score: 3 - Plan Anesthesia: General TIVA - Discussion Discussion: Discussed risks/options/alternatives of anesthesia and questions answered. Patient consents. Nursing pain assessment noted. Present for Discussion: spouse Attestation Statement: Prior to the delivery of any anesthetic medication, I examined the patient, developed the plan, obtained the patient's consent and discussed the risk and benefits of the procedure with the patient/guardian. - Additional Information Seen by Anesthesia: Yes
--- NOTE | 2017-06-26 14:06 | Procedure Note ---
- Procedure Date/Time: Date: 06/26/17 Time: 1357 Surgeon: Sahil ASA Score: 3 Proceure: EGD for epifanio assay ( ), other (biopsy prepyloric ulcer) - Postoperative EGD Diagnosis Postoperative EGD Diagnosis: Other (Prepyloric ulcer resulting in gastric outlet obstruction.) - Complications Estimated Blood Loss: See Anesthesia Record. Vital Signs: See Anesthesia and PACU record.
--- NOTE | 2017-06-26 15:06 | XRay Report ---
Indication: check NG tube placement PROCEDURE: XR KUB: Encounter: Initial Comparison: Small bowel follow-through from today Findings: New nasogastric tube in place with the tip projecting over the body of the stomach and the side port just below the expected GE junction. Lung bases are grossly clear. Contrast material seen throughout the colon. No abnormally dilated small bowel loops appreciated. Impression: New nasogastric tube as above. .
[2017-06-26] MEDS ORDERED: ONDANSETRON ODT 4 MG TABLET PO PRN (15:35)
[2017-06-26] MEDS ORDERED: INSULIN REGULAR, HUMAN 100 UNIT/ML INJECTION SQ PRN (15:35)
[2017-06-26] MEDS ORDERED: TPN - PHARMACY CONSULT MC ONE (15:35)
--- NOTE | 2017-06-26 16:18 | Progress Note ---
DATE 06/26/2017 FINDINGS Mr. Cloud was seen earlier today on rounds. He informs me that he was "feeling miserable". He informs me that his neuropathy was becoming worse and that his "feet were killing him". Patient also stated that he was "quite hungry". He informed me that he was "ready to pull out his NG and eat a steak". OBJECTIVE VITALS: Temperature 98.0, pulse 66, respirations 18, blood pressure 149/79, SaO2 96% on room air. HEENT: Normocephalic. Pupils are equally round and react to light and accommodation. CHEST: Clear to auscultation bilaterally. HEART: Regular rate and rhythm. Normal S1, S2, without gallops, murmurs or clicks. ABDOMEN: Palpation of the abdomen did reveal some minimal tenderness in the epigastric region. There was, however, no evidence for guarding or rebound. LABORATORY/RADIOGRAPHIC EVALUATION Patient had a CBC today and his white count was stable at 7.6. Hemoglobin overall stable and slightly improved at 11.8. BMP was obtained and found to be without marked abnormalities. EGD was performed earlier today and he was found to have a large prepyloric ulcer with associated gastric outlet obstruction/ pyloric narrowing. ASSESSMENT 71-year-old gentleman with large prepyloric ulcer with associated pyloric narrowing/gastric outlet obstruction. PLAN Will begin Protonix/PPI in a continuous drip. Will recommend proceeding with placement of a PICC line to initiate hyperalimentation. Hopefully over the next 48 hours or more, the patient's gastric outlet obstruction will improve to the point that he is able to begin to take some liquids. For now we will continue with NG suction to low intermittent suction, await his ALL assay results for presence of H. pylori and treat accordingly, and initiate hyperalimentation as stated above. The above endoscopic findings were shared with the patient's following his procedure, as well as the above proposed plan/algorithm. [facility]
[2017-06-26] MEDS: MORPHINE SULFATE 4mg INJECTION IVP PRN ×4 (16:42→23:26)
--- NOTE | 2017-06-26 16:47 | Anesthesia Postoperative Note ---
- Date and Time Date: 06/26/17 Time: 14:45 - Status Patient Participated in Evaluation: Patient Participated in Person Vital Signs: Temperature 98.5 F 06/26/17 15:30 Pulse Rate 66 06/26/17 15:45 Respiratory Rate 20 06/26/17 15:45 Blood Pressure 147/85 H 06/26/17 15:45 Pulse Oximetry 96 06/26/17 15:45 Respiratory Function: Airway Patent Cardiovascular Function: Regular Pulse EKG: Sinus Rhythm Mental Status: Alert and Oriented Pain Intensity: 0 Hydration: Taking PO Fluids Complications During Recover: None Apparent - Follow-Up Instructions Instructions: Per Surgeon
--- NOTE | 2017-06-26 16:59 | Pharmacy Consult-TPN/PPN ---
Pharmacy Consult-TPN/PPN - Laboratory Information Chemistry Turbidity < 20 (0-20) 06/26/17 05:16 Sodium 140 MEQ/L (134-144) 06/26/17 05:16 Potassium 3.7 MEQ/L (3.6-5) 06/26/17 05:16 Chloride 104 MEQ/L (98-107) 06/26/17 05:16 Carbon Dioxide 25 MEQ/L (22-30) 06/26/17 05:16 Anion Gap 11 meq/L (5-15) 06/26/17 05:16 BUN 7.0 MG/DL (9-20) L 06/26/17 05:16 Creatinine 0.9 mg/dL (0.8-1.5) 06/26/17 05:16 GFR Calculation 83 06/26/17 05:16 BUN/Creatinine Ratio 8 RATIO (6-26) 06/26/17 05:16 Glucose 76 MG/DL (75-110) 06/26/17 05:16 Glucometer 91 mg/dL (65-110) 06/25/17 06:46 Hemoglobin A1c 5.4 % (4.0-5.7) 06/24/17 14:16 Calculated Osmolality 266 MOSM/KG (261-280) 06/26/17 05:16 Calcium 8.6 MG/DL (8.4-10.2) 06/26/17 05:16 Magnesium 2.1 MG/DL (1.6-2.3) 06/24/17 14:16 Total Bilirubin 0.70 MG/DL (0.20-1.30) 06/24/17 14:16 Conjugated Bilirubin 0.00 mg/dL (0.00-0.30) 06/24/17 14:16 Unconjugated Bilirubin 0.60 mg/dL (0.00-1.1) 06/24/17 14:16 Icterus Index < 2 (0-7) 06/26/17 05:16 AST 31 U/L (17-59) 06/24/17 14:16 ALT 25 U/L (1-50) 06/24/17 14:16 Alkaline Phosphatase 78 U/L (38-126) 06/24/17 14:16 C-Reactive Protein < 5.0 mg/L (0-9) 06/24/17 14:16 Total Protein 6.2 g/dL (6.3-8.2) L 06/24/17 14:16 Albumin 3.7 g/dL (3.5-5.0) 06/24/17 14:16 Globulin 2.5 G/DL (2.4-3.6) 06/24/17 14:16 Albumin/Globulin Ratio 1.5 RATIO (1.1-2.2) 06/24/17 14:16 Prealbumin 15.7 mg/dL (17.6-36.0) L 06/24/17 14:16 Lipase 281 U/L (23-300) 06/24/17 14:16 TSH 9.43 mIU/L (0.47-4.68) H 06/24/17 14:16 Specimen Hemolysis < 15 (0-25) 06/26/17 05:16 Intake and Output 06/25/17 06/26/17 06/27/17 06:59 06:59 06:59 Intake Total 931.667 / 091.648 1451 / 2720 755 / 755 Output Total 1750 / 1750 3400 / 3400 600 / 600 Balance -818.333 / -818.333 -680 / -680 155 / 155 Weight 72.5 kg 69.6 kg Intake: IV 931.667 / 603.298 2282 / 2600 755 / 755 NS with KCL 20 mEq 1,000 ml @ 1000 / 1000 355 / 355 75 mls/hr IV .[id number] [facility] Rx#: [id number] Ns 1,000 ml @ 50 mls/hr IV . 931.667 / 819.504 8513 / 1600 400 / 400 Q20H [facility] Rx#:[id number] Oral 120 / 120 Output: Urine 1000 / 1000 2900 / 2900 600 / 600 Gastric Drainage 750 / 750 500 / 500 Right Nare 750 / 750 500 / 500 Other: Urine Appearance Clear Clear Clear Urine Color Yellow Dark Yellow Yellow Urine Odor Normal Normal Stool Color Green Stool Consistency Liquid Size of Bowel Movement Moderate # Voids 2 # Incontinent Voids 1 - Consult Information We will initiate custom TPN formula via PICC line (when placed) with usual electrolytes except that we will be using 80mEq of sodium acetate instead of 40mEq of NaCl and 40mEq of sodium acetate. This is due from a nationwide shortage of NaCl concentrate. We will also give 100mL of 20% fat emulsion daily at 1800 daily. The starting rate for TPN is 50mL per hour for 12 hours then increase to a target rate of 90mL per hour thereafter. We will reduce the peripheral IV of NS with 20mEq of KCL to 30mL per hour.
[2017-06-26] MEDS ORDERED: SODIUM ACETATE IV SCH (18:00)
[2017-06-26] MEDS ORDERED: POTASSIUM CHLORIDE IV SCH (18:00)
[2017-06-26] MEDS ORDERED: [UNRECOGNIZED DRUG - OTHER] IV SCH (18:00)
[2017-06-26] MEDS: PANTOPRAZOLE IV 80 MG in NS 250ml 250 ML IV SCH (18:20)
[2017-06-26] MEDS: FAT EMULSION 20% 100 ML IV SCH (18:21)
[2017-06-26] MEDS: GABAPENTIN 600 MG TABLET PO SCH (20:22)
[2017-06-26] MEDS: ATORVASTATIN 20 MG TABLET PO SCH (20:22)
[2017-06-26] MEDS: PRAMIPEXOLE 1 MG TABLET PO SCH (21:30)
[2017-06-26] MEDS: SALINE FLUSH 10ml SYRINGE IV PRN (21:32)
[2017-06-27] MEDS: MORPHINE SULFATE 4mg INJECTION IVP PRN ×4 (02:35→21:32)
[2017-06-27] MEDS: NS with KCL 20 mEq 1,000 ML IV SCH ×2 (03:31→20:36)
[2017-06-27] MEDS: LEVOTHYROXINE 200 MCG TABLET PO SCH (06:49)
--- NOTE | 2017-06-27 07:01 | Operative Note ---
DATE OF SERVICE 06/26/2017 SURGEON DEYANIRA WHITE MD PREOPERATIVE DIAGNOSES History for nausea and vomiting, history for abnormal CT scan revealing marked gastric distention, history for unintentional weight loss. POSTOPERATIVE DIAGNOSES History for nausea and vomiting, history for abnormal CT scan revealing marked gastric distention, history for unintentional weight loss; large prepyloric ulceration with associated pyloric stenosis/gastric outlet obstruction. PROCEDURE Esophagogastroscopy with biopsies from edge of a prepyloric ulcer, biopsies from antrum for ALL assay. ANESTHESIA TIVA. BRIEF HISTORY/INDICATIONS Mr. Cloud is a 71-year-old gentleman who is known my surgical/wound care practice. Over the last month the patient has been experiencing a component of epigastric abdominal discomfort associated with a component of intermittent nausea and vomiting. He has lost about 30-40 pounds over the last month. The patient states that he "always feels full" and has noted that he has "horrible- smelling belches." The patient underwent a CT scan in the [id number] past that did not reveal any evidence for metastatic cancer. He was found to have a large distended stomach with a significant amount of food within the stomach. When I saw the patient recently in the office he was beginning to have a component of improvement after being placed on Reglan. 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 The patient's condition, however, worsened and he was recently admitted to hospital. It was recommended that he undergo an EGD for further evaluation. For completeness please refer to the multitude of notes included within the patient's chart. FINDINGS Upon upper endoscopy there was still a significant amount of fluid and debris within the gastric lumen which did limit visualization of the corpus of the stomach as well as the fundal portion of the stomach. Fortunately, the antrum and pyloric region was able to be visualized. One could see a large prepyloric ulcer that was perhaps 3-4 cm in diameter. This extended into the pyloric region and the pylorus was quite stenotic with perhaps only a 2-3 mm opening being left. The scope was unable to be advanced past the pylorus and into the duodenum as a result of this gastric outlet obstruction. Biopsies were obtained from the edge of the ulcer as well as from within the antrum for ALL assay. DESCRIPTION OF PROCEDURE After informed consent was obtained the patient was brought to the endoscopy suite and placed on the table in a left lateral decubitus position. The patient subsequently underwent total intravenous anesthesia by the nurse budget clerk per my request. Formal time-out was then completed. Next, an Olympus gastroscope was inserted in the oral hypopharynx and subsequently the esophagus under direct visualization. Vocal cords were visualized without noted abnormalities. Gastroscope was then advanced through the esophagus and into the stomach. Upon entering the stomach, one could see a considerable amount of residual fluid and particulate matter. A fair amount of time was spent trying to aspirate the residual fluid and particulate matter. Perhaps half of the material was able to be suctioned. The scope was then advanced up into the pyloric region. One could then see a large ulcer. There was a white exudate overlying the ulcer bed which was likely about 3-4 cm in diameter. The ulcer bed did extend into the pyloric region. Photos were obtained for documentation purposes. Multiple biopsies were obtained from the edge of the ulcer circumferentially. A biopsy was also obtained from the antrum for ALL assay. Biopsies from the edge of the ulcer were submitted for permanent pathology. Pylorus was narrowed to the point that the gastroscope could not be advanced through the pyloric region. The remaining pyloric opening was only on the order of a few millimeters in diameter. A J maneuver was performed and one could not see much of the fundal portion of the stomach or the cardia as a result of the residual fluid that was still present. The scope was allowed to straighten and slowly withdrawn until it was brought forth back up into the esophagus. There was a component of some distal esophagitis as a result of the patient's reflux and gastric outlet obstruction. Distal esophagus was somewhat edematous and erythematous in nature. No carmina ulcerations, however, were noted within the esophagus. There was no endoscopic evidence for Renee's metaplasia. Gastroscope was slowly withdrawn and the remaining esophageal mucosa found within normal limits. The patient tolerated the procedure without difficulty and was sent back to the preop area in stable condition. [facility]
[2017-06-27] MEDS: PANTOPRAZOLE IV 80 MG in NS 250ml 250 ML IV SCH ×2 (07:46→18:37)
[2017-06-27] MEDS ORDERED: IRON - PHARMACY CONSULT MC ONE (09:11)
--- NOTE | 2017-06-27 09:44 | Progress Note ---
- Date 06/27/17 Subjective: F/U: Prepyloric ulcer, gastritis, nausea, vomiting, weight loss. Jori is seen first thing this morning while resting in bed. He reports that he is ready to get up to his chair and is requesting morphine for his neuropathy pain. He denies any other complaints or concerns. No chest pain, shortness of breath, abdominal pain, nausea, vomiting or dysuria. He underwent EGD on 06/26/17 which revealed large prepyloric ulcer and gastritis creating a gastric outlet obstruction. NG remains in place on suction. He had a PICC line placed on 06/26/17 with initiation of hyperalimentation. Objective Vital signs: Temperature 96.7 F L 06/27/17 04:00 Pulse Rate 60 06/27/17 04:00 Respiratory Rate 16 06/27/17 04:00 Blood Pressure 152/78 H 06/27/17 04:00 Pulse Oximetry 96 06/27/17 04:00 Height/Weight/BMI: Height 5 ft 8 in Weight 153 lb 7.068 oz Body Mass Index 24.3 Comments: Resting in bed. - Constitutional Present: no acute distress, well nourished, well developed, thin, cooperative - Routine HEENT Exam Head: Present: normocephalic, atraumatic Eye: Present: PERRL. Absent: conjunctival icterus ENT: Present: mucous membranes dry, oropharynx clear - Routine Respiratory Exam Present: CTA bilaterally. Absent: respiratory distress, wheezes - Routine Cardiovascular Exam Present: RRR, S1, S2 - Routine Abdominal Exam Present: soft, normoactive bowel sounds, non tender, distended Comments: NG in place with suction. - Routine Extremities Exam Present: edema (1+), full ROM, pulses intact - Routine Back/Spine/Pelvis Exam Back/Spine: Present: full ROM. Absent: vertebral tenderness - Routine Musculoskeletal Exam Musculoskeletal: Present: no clubbing or cyanosis, moving extremities well - Routine Skin Exam Present: intact, dry, warm Comments: Afebrile. - Routine Neurological Exam Present: alert, oriented X3, CN II-XII intact, moving all extremities, hearing grossly intact, normal speech - Routine Lymphatic Exam Lymphatic: Absent: lymphedema - Routine Psychiatric Exam Present: normal affect, cooperative Results - Labs CBC & Chem 7: 06/27/17 04:50 06/27/17 04:50 Assessment and Plan Assessment and Plan: Assessment Prepyloric ulcer with gastritis causing gastric outlet obstruction. Nausea and vomiting secondary to gastric outlet obstruction. Unintentional weight loss Idiopathic peripheral neuropathy Hypothyroidism Chronic anemia - iron deficiency Suspect secondary to chronic GI blood loss secondary to ulcer. CAD Hypertension Hyperlipidemia Hypogonadism Insomnia Mitral valve disorder Spinal stenosis Vitamin D deficiency GERD Chronic right heel ulceration Plan EGD on 06/26/[address] Baxter revealed large prepyloric ulceration with gastritis which is creating gastric outlet obstruction. Protonix placed on continuous drip for treatment of ulcer. Diclofenac discontinued due to ulcer on 06/26/17. PICC line placed with initiation of hyperalimentation. ALL assay results pending and will determine if treatment for H.pylori is needed. Maintain NPO status with current NG tube in place on suction for bowel decompression. Continue IV fluids with NS with KCl at 30cc/hr for gentle hydration. Mild hypokalemia (K 3.5). Continue IV fluids with NS with KCl at 30cc/hr for gentle hydration. Home felodipine ER increased to 10mg daily (increased from 5mg daily) on 06/26/17 and continue home enalapril 20mg daily. Continue to monitor blood pressure closely. TSH elevated at 9.43 on admission. Currently on 200mcg Synthroid. T3 low 2.34 and T4 1.59. Concern medications not being absorbed well due to ulceration. Will hold off on medication changes at this time. Recommend follow up with PCP for recheck TSH in 4-6 weeks Zofran and Reglan for nausea/vomiting. Prealbumin borderline mild protein calorie malnutrition. Consider dietary consult prior to discharge. Recheck labs in AM to monitor blood counts, electrolytes and renal function. DVT Prophylaxis: SCD's GI Prophylaxis: Protonix Resuscitation Status: Full Code - Time spent with patient Time with patient PN: 30 minutes - Physician Narrative Physician: Alonso Ferrell MD Narrative: Date: 06/27/17 Time: 1330 Have independently interviewed and examined pt. Chart reviewed. Case discussed with CM and my PA. Care plan developed with my supervision; agree with above. Feeling better-ab pain and nausea resolved. Tolerating NG tube-note some tickle in throat secondary. Breathing well. Ambulating well. Not having increased edema. Lungs: clear AB: Soft nt CV: regular EXT: No edema MSE: awake alert appropriate Plan: Continue NG decompression - may give oral meds by mouth. Monitor NG output to help determine how much gastric content is empting from stomach. Will continue with Protonix to help heal ulcer. Continue with TPN for nutritional support due to inability to initiate oral intake due to GOO. Hold on changing Synthroid dose - possible decrease absorption of Synthroid secondary to retained fluid in stomach binging to thyroid medication. Iron and ferritin levels low - will have pharm give IV iron. Encourage ambulation. Monitor lab. Case discussed at length with patient and his - questions answered. Hospital Course Summary Disclaimer: The visit summary below is not to be considered part of the above Progress Note. Hospital Course: 06/24/17 Admit to observation status under the care of Dr. Ferrell. Consult Dr. Baxter for surgical evaluation and anticipated endoscopy. NPO status in anticipation of possible surgical evaluation. Initiate NS 100cc/ hr for hydration. Will obtain upper GI/KUB small bowel series per Dr. Baxter with NG tube placement. Labs on admission relatively unremarkable. Hgb 11.3. Will check B12. Monitor closely. No signs of bleeding on exam. History of anemia. Patient denies history of diabetes. Will check A1c now in addition to TSH. Monitor BGMs and sliding scale insulin as needed. Zofran and Reglan for nausea/vomiting. CRP, lipase and TSH pending. Prealbumin borderline mild protein calorie malnutrition. Consider dietary consult prior to discharge. Will continue home medications. Hold home ASA in anticipation of possible endoscopy and current anemia. Monitor blood pressure closely. Recheck labs in AM to monitor blood counts, electrolytes and renal function. Upon discharge, patient's care will be returned to his PCP, Dr. Hewitt and Dr. Baxter. Patient requests to be a Full CODE. 06/25/17 Patient unable to maintain oral hydration. Patient status changed to inpatient. NG tube was placed with suction. He remains NPO. XR small bowel follow through revealed normal intestinal transit time. Dr. Baxter planning on performing an EGD either later today or tomorrow. Will change IVF to NS with 20 KCl at 75cc/hr as potassium trending down (likely to gastric losses from NG suction). Labs stable. B12 pending. Lipase normal. CRP <5. TSH elevated at 9.43. Currently on 200mcg Synthroid. Will check T3 and T4 and consider increasing dosage. Patient denies history of diabetes. A1c 5.4%. Zofran and Reglan for nausea/vomiting. Prealbumin borderline mild protein calorie malnutrition. Consider dietary consult prior to discharge. 06/26/17 OP DAY - EGD with large prepyloric ulcer resulting in gastric outlet obstruction Patient awaiting endoscopy with Dr. Baxter planned for today. Maintain NPO status with current NG tube in place on suction for bowel decompression. Continue IV fluids with NS with KCl at 75cc/hr for hydration. Blood pressure persistently elevated. Will increase home felodipine ER to 10mg daily (home dose 5mg daily) and continue home enalapril 20mg daily. Tolerated EGD well. Finding large prepyloric ulcer resulting in gastric outlet obstruction - source of pt's persistent nausea and vomiting. Dr Baxter recommends continuing NG for bowel decompression, placing PICC line, and starting TPN. Protonix increased to continuous drip. Hold on Carafate as could potentially worsen outlet obstruction. Will stop diclofenac gel secondary to ulcer. 06/27/17 Continue bowel decompression with NG due to GOO. Monitor NG output to help determine when tube can be removed. TPN for nutritional support secondary to inability to provide oral nutrition due to gastric outlet obstruction. Can discontinue IVF. Continue IV Protonix to held heal ulcer. ALL assay results pending and will determine if treatment for H.pylori is needed. Iron and ferritin levels low. Will have pharm give IV iron to help anemia. TSH elevated at 9.43 on admission. Likely Synthroid medication being bound up with increased gastric contents secondary to GOO.
--- NOTE | 2017-06-27 10:07 | Pharmacy Consult-TPN/PPN ---
Pharmacy Consult-TPN/PPN - Laboratory Information Chemistry Turbidity < 20 (0-20) 06/27/17 04:50 Sodium 139 MEQ/L (134-144) 06/27/17 04:50 Potassium 3.5 MEQ/L (3.6-5) L 06/27/17 04:50 Chloride 103 MEQ/L (98-107) 06/27/17 04:50 Carbon Dioxide 28 MEQ/L (22-30) 06/27/17 04:50 Anion Gap 8 meq/L (5-15) 06/27/17 04:50 BUN 10.0 MG/DL (9-20) 06/27/17 04:50 Creatinine 0.8 mg/dL (0.8-1.5) 06/27/17 04:50 GFR Calculation 95 06/27/17 04:50 BUN/Creatinine Ratio 13 RATIO (6-26) 06/27/17 04:50 Glucose 156 MG/DL (75-110) H 06/27/17 04:50 Glucometer 91 mg/dL (65-110) 06/25/17 06:46 Hemoglobin A1c 5.4 % (4.0-5.7) 06/24/17 14:16 Calculated Osmolality 270 MOSM/KG (261-280) 06/27/17 04:50 Calcium 8.3 MG/DL (8.4-10.2) L 06/27/17 04:50 Phosphorus 2.4 MG/DL (2.5-4.5) L 06/27/17 04:50 Magnesium 2.3 MG/DL (1.6-2.3) 06/27/17 04:50 Iron 43 ug/dL (49-181) L 06/24/17 14:16 Ferritin 8.18 ng/mL (18-464) L 06/24/17 14:16 Total Bilirubin 0.70 MG/DL (0.20-1.30) 06/24/17 14:16 Conjugated Bilirubin 0.00 mg/dL (0.00-0.30) 06/24/17 14:16 Unconjugated Bilirubin 0.60 mg/dL (0.00-1.1) 06/24/17 14:16 Icterus Index < 2 (0-7) 06/27/17 04:50 AST 31 U/L (17-59) 06/24/17 14:16 ALT 25 U/L (1-50) 06/24/17 14:16 Alkaline Phosphatase 78 U/L (38-126) 06/24/17 14:16 C-Reactive Protein < 5.0 mg/L (0-9) 06/24/17 14:16 Total Protein 6.2 g/dL (6.3-8.2) L 06/24/17 14:16 Albumin 3.7 g/dL (3.5-5.0) 06/24/17 14:16 Globulin 2.5 G/DL (2.4-3.6) 06/24/17 14:16 Albumin/Globulin Ratio 1.5 RATIO (1.1-2.2) 06/24/17 14:16 Prealbumin 15.7 mg/dL (17.6-36.0) L 06/24/17 14:16 Lipase 281 U/L (23-300) 06/24/17 14:16 Vitamin B12 > 1000 pg/mL (239-931) H 06/24/17 14:16 TSH 9.43 mIU/L (0.47-4.68) H 06/24/17 14:16 Free T4 1.59 ng/dL (0.78-2.19) 06/26/17 05:16 Free T3 2.34 PG/ML (2.77-5.27) L 06/26/17 05:16 Specimen Hemolysis < 15 (0-25) 06/27/17 04:50 Intake and Output 06/26/17 06/27/17 06/28/17 06:59 06:59 06:59 Intake Total 2720 / 2720 1082.083 / 1082.083 0 / 0 Output Total 3400 / 3400 2580 / 2580 Balance -680 / -680 -1497.917 / -1497.917 0 / 0 Weight 69.6 kg Intake: IV 2600 / 2600 1082.083 / 1082.083 0 / 0 Fat Emulsion 20% 100 ml @ 50 100 / 100 mls/hr IV 1800 [facility] Rx#: [id number] NS with KCL 20 mEq 1,000 ml @ 1000 / 1000 355 / 355 30 mls/hr IV .Q24H [facility] Rx#: [id number] Ns 1,000 ml @ 50 mls/hr IV . 1600 / 1600 400 / 400 Q20H [facility] Rx#:[id number] Pantoprazole IV 80 mg In NS 227.083 / 227.083 0 / 0 250ml 250 ml @ 8 MG/HR 25 mls/ hr IV .Q10H [facility] Rx#:[id number] Oral 120 / 120 Output: Urine 2900 / 2900 1580 / 1580 Gastric Drainage 500 / 500 1000 / 1000 Right Nare 500 / 500 1000 / 1000 Other: Urine Appearance Clear Clear Urine Color Dark Yellow Yellow Urine Odor Normal Stool Color Green Stool Consistency Liquid Size of Bowel Movement Moderate # Voids 2 # Incontinent Voids 1 1 - Consult Information Serum potassium was 3.5 this a.m. so we will make adjustment to TPN. The TPN rate increase to 90mL per hour became effective at 0600 this a.m. We will add 20mEq of potassium acetate and increase potassium phosphate to 60mEq per TPN bag due to be changed today at 1500. Serum phosphate of 2.4 should be corrected with additional potassium phosphate. Continue 100mL of 20% intralipid daily. Thanks
[2017-06-27] MEDS: MULTI-VITAMIN + MINERAL TABLET PO SCH (10:37)
[2017-06-27] MEDS: GABAPENTIN 300 MG CAPSULE PO SCH ×3 (10:38→20:00)
[2017-06-27] MEDS: METOCLOPRAMIDE 10mg/2ml INJECTION IVP SCH ×4 (10:38→20:55)
[2017-06-27] MEDS: DICLOFENAC 1% TOP GEL 100gm TP SCH (11:20)
--- NOTE | 2017-06-27 11:26 | Pharmacy Consult ---
Pharmacy Consult-Iron - Laboratory Information Iron Labs 06/24/17 06/24/17 06/25/17 14:16 14:16 07:14 Hgb 11.3 L 10.8 L Hct 36.3 L 35.4 L Iron 43 L 06/26/17 06/27/17 05:16 04:50 Hgb 11.8 L 11.1 L Hct 38.4 L 35.3 L Iron - Consult Information IV IRON CONSULT: Dx: Acute anemia 2* to blood loss: Today's hct = 35.3 Total calculated dose = 100 MG Will give 25mg IV test dose. Watch VS q15min x 1 hr. (Watching for anaphylaxis, respiratory distress, hives) If no reaction, will give remainder of dose = 75 mg Watch VS q15min x 1 hr. Thank you for the consult. Joana Martell, PharmD
[2017-06-27] MEDS ORDERED: IRON DEXTRAN COMPLEX 100mg/2ml INJECTION IV ONE (13:30)
[2017-06-27] MEDS ORDERED: NS IV ONE (14:30)
[2017-06-27] MEDS ORDERED: IRON DEXTRAN IV ONE (14:30)
[2017-06-27 15:29] VITALS: BMI 23.3
--- NOTE | 2017-06-27 17:24 | Progress Note ---
DATE OF SERVICE 06/27/2017 FINDINGS Mr. Cloud was seen earlier on afternoon rounds. He was resting comfortably upon entering the room. The patient, when awakened, denied severe abdominal pain. He states that he did go outside in the atrium and had sat for a period of time earlier today. He was without complaints. PHYSICAL EXAM VITAL SIGNS: Temperature 97.8, pulse 61, respirations 18, blood pressure 138/77 , SAO2 97% room air. HEENT: Normocephalic. Pupils are equally round and react to light and accommodation. CHEST: Clear to auscultation bilaterally. HEART: Regular rate and rhythm. Normal S1 and S2 without gallops, murmurs or clicks. ABDOMEN: Soft, nontender. LABORATORY/RADIOGRAPHIC EVALUATION The patient had a CBC today and his hemoglobin is stable at 11.1. White count was 7.3. BMP obtained and found to be without marked abnormalities. ALL assay returned as negative for evidence for H. pylori. Final pathology is still pending in regards to biopsies performed yesterday during EGD. ASSESSMENT 71-year-old gentleman with gastric outlet obstruction secondary to peptic ulcer disease. Patient currently doing well. PLAN Will continue with NG suction and hyperalimentation as well as treatment for peptic ulcer disease. The patient is on a Protonix IV drip. On Friday we may begin to try some liquids sparingly. Will plan on continuing with current care over the course of the weekend. Dr. Day will be covering for me from a general surgical standpoint. [facility]
[2017-06-27] MEDS: POTASSIUM CHLORIDE IV SCH (18:37)
[2017-06-27] MEDS: [UNRECOGNIZED DRUG - OTHER] IV SCH (18:37)
[2017-06-27] MEDS: SODIUM ACETATE IV SCH (18:37)
[2017-06-27] MEDS: FAT EMULSION 20% 100 ML IV SCH (18:38)
[2017-06-27] MEDS: ATORVASTATIN 20 MG TABLET PO SCH (20:55)
[2017-06-27] MEDS: GABAPENTIN 600 MG TABLET PO SCH (20:55)
[2017-06-27] MEDS: PRAMIPEXOLE 1 MG TABLET PO SCH (20:56)
[2017-06-27] MEDS: SALINE FLUSH 10ml SYRINGE IV PRN (20:56)
[2017-06-28] MEDS: MORPHINE SULFATE 4mg INJECTION IVP PRN ×7 (00:26→23:05)
[2017-06-28] MEDS: SALINE FLUSH 10ml SYRINGE IV PRN ×3 (00:27→20:40)
[2017-06-28] MEDS: PANTOPRAZOLE IV 80 MG in NS 250ml 250 ML IV SCH ×3 (04:57→21:51)
[2017-06-28] MEDS: LEVOTHYROXINE 200 MCG TABLET PO SCH (06:39)
--- NOTE | 2017-06-28 06:47 | Pharmacy Consult-TPN/PPN ---
Pharmacy Consult-TPN/PPN - Laboratory Information Chemistry Turbidity < 20 (0-20) 06/28/17 04:29 Sodium 140 MEQ/L (134-144) 06/28/17 04:29 Potassium 3.8 MEQ/L (3.6-5) 06/28/17 04:29 Chloride 103 MEQ/L (98-107) 06/28/17 04:29 Carbon Dioxide 28 MEQ/L (22-30) 06/28/17 04:29 Anion Gap 9 meq/L (5-15) 06/28/17 04:29 BUN 14.0 MG/DL (9-20) 06/28/17 04:29 Creatinine 0.8 mg/dL (0.8-1.5) 06/28/17 04:29 GFR Calculation 95 06/28/17 04:29 BUN/Creatinine Ratio 18 RATIO (6-26) 06/28/17 04:29 Glucose 137 MG/DL (75-110) H 06/28/17 04:29 Glucometer 121 mg/dL (65-110) 06/28/17 00:23 Hemoglobin A1c 5.4 % (4.0-5.7) 06/24/17 14:16 Calculated Osmolality 272 MOSM/KG (261-280) 06/28/17 04:29 Calcium 8.4 MG/DL (8.4-10.2) 06/28/17 04:29 Phosphorus 2.4 MG/DL (2.5-4.5) L 06/27/17 04:50 Magnesium 2.3 MG/DL (1.6-2.3) 06/28/17 04:29 Iron 43 ug/dL (49-181) L 06/24/17 14:16 Ferritin 8.18 ng/mL (18-464) L 06/24/17 14:16 Total Bilirubin 1.20 MG/DL (0.20-1.30) 06/28/17 04:29 Conjugated Bilirubin 0.00 mg/dL (0.00-0.30) 06/24/17 14:16 Unconjugated Bilirubin 0.60 mg/dL (0.00-1.1) 06/24/17 14:16 Icterus Index < 2 (0-7) 06/28/17 04:29 AST 20 U/L (17-59) 06/28/17 04:29 ALT 17 U/L (1-50) 06/28/17 04:29 Alkaline Phosphatase 58 U/L (38-126) 06/28/17 04:29 C-Reactive Protein < 5.0 mg/L (0-9) 06/24/17 14:16 Total Protein 5.8 g/dL (6.3-8.2) L 06/28/17 04:29 Albumin 3.3 g/dL (3.5-5.0) L 06/28/17 04:29 Globulin 2.5 G/DL (2.4-3.6) 06/28/17 04:29 Albumin/Globulin Ratio 1.3 RATIO (1.1-2.2) 06/28/17 04:29 Prealbumin 15.7 mg/dL (17.6-36.0) L 06/24/17 14:16 Lipase 281 U/L (23-300) 06/24/17 14:16 Vitamin B12 > 1000 pg/mL (239-931) H 06/24/17 14:16 TSH 9.43 mIU/L (0.47-4.68) H 06/24/17 14:16 Free T4 1.59 ng/dL (0.78-2.19) 06/26/17 05:16 Free T3 2.34 PG/ML (2.77-5.27) L 06/26/17 05:16 Specimen Hemolysis < 15 (0-25) 06/28/17 04:29 Intake and Output 06/26/17 06/27/17 06/28/17 06:59 06:59 06:59 Intake Total 2720 / 2720 1082.083 / 1007.323 7653.0 / 1166.0 Output Total 3400 / 3400 2580 / 2580 1050 / 1050 Balance -680 / -680 -1497.917 / -1497.917 116.0 / 116.0 Weight 69.6 kg 67.4 kg Intake: IV 2600 / 2600 1082.083 / 1893.481 3095.0 / 1166.0 Fat Emulsion 20% 100 ml @ 50 100 / 100 100 / 100 mls/hr IV 1800 [facility] Rx#: [id number] Iron Dextran 75 mg In Ns 50 ml 51.5 / 51.5 @ 50 mls/hr IV [facility] Rx#: [id number] NS with KCL 20 mEq 1,000 ml @ 1000 / 1000 355 / 355 514.5 / 514.5 30 mls/hr IV .Q24H [facility] Rx#: [id number] Ns 1,000 ml @ 50 mls/hr IV . 1600 / 1600 400 / 400 Q20H [facility] Rx#:[id number] Pantoprazole IV 80 mg In NS 227.083 / 227.083 500 / 500 250ml 250 ml @ 8 MG/HR 25 mls/ hr IV .Q10H [facility] Rx#:[id number] Oral 120 / 120 Output: Urine 2900 / 2900 1580 / 1580 1050 / 1050 Gastric Drainage 500 / 500 1000 / 1000 Right Nare 500 / 500 1000 / 1000 Other: Urine Appearance Clear Clear Clear Urine Color Dark Yellow Yellow Yellow Urine Odor Normal Stool Color Green Stool Consistency Liquid Size of Bowel Movement Moderate # Voids 2 # Incontinent Voids 1 1 - Consult Information TPN day 3 Electrolytes reviewed. Will continue with no changes to current TPN formula and rate. Pharmacy will continue to monitor and adjust. Thank you, Jennifer Lindsey, formerly [facility] Current custom TPN formula per bag: Amino Acid 8.5% 1000 ml Dextrose 50% 1000 ml Sodium Acetate 80 meq Potassium Chloride 40 meq Potassium phos 60 meq Potassium Acetate 20 meq Mag Sulf 16 meq Calcium Gluc 9.3 meq Multi vit 10 ml Multi trace 1 ml rate: 90 ml/hr Fat emulsion 20% 100 ml per day
[2017-06-28] MEDS: MULTI-VITAMIN + MINERAL TABLET PO SCH (08:37)
[2017-06-28] MEDS: GABAPENTIN 300 MG CAPSULE PO SCH ×3 (08:37→16:27)
[2017-06-28] MEDS: METOCLOPRAMIDE 10mg/2ml INJECTION IVP SCH ×4 (08:38→22:12)
[2017-06-28] MEDS: NS with KCL 20 mEq 1,000 ML IV SCH ×2 (09:44→22:08)
--- NOTE | 2017-06-28 13:56 | Progress Note ---
- Date 06/28/17 Subjective: F/U: Prepyloric ulcer, gastritis, nausea, vomiting, weight loss. Jori is seen this afternoon sitting in his chair. He reports he is doing okay overall. He complains of his neuropathic pain. He still has the NG tube which continues to drain some. He is nothing by mouth for the weekend. He underwent EGD on 06/26/17 which revealed large prepyloric ulcer and gastritis creating a gastric outlet obstruction. He had a PICC line placed on 06/26/17 with initiation of hyperalimentation. Objective Vital signs: Temperature 98.7 F 06/28/17 12:00 Pulse Rate 58 L 06/28/17 12:00 Respiratory Rate 14 06/28/17 12:00 Blood Pressure 137/82 06/28/17 12:00 Pulse Oximetry 97 06/28/17 12:00 Height/Weight/BMI: Height 1.73 m Weight 40.2 kg Body Mass Index 23.3 - Constitutional Present: no acute distress, well nourished, well developed - Routine HEENT Exam Head: Present: normocephalic, atraumatic - Routine Respiratory Exam Present: CTA bilaterally. Absent: wheezes - Routine Cardiovascular Exam Present: RRR, no murmur - Routine Abdominal Exam Present: soft, non distended, non tender - Routine Extremities Exam Present: no edema, normal capillary refill - Routine Skin Exam Present: dry, warm - Routine Neurological Exam Present: alert, oriented X3 - Routine Lymphatic Exam Lymphatic: Absent: adenopathy - Routine Psychiatric Exam Present: normal affect, cooperative Results - Labs CBC & Chem 7: 06/28/17 04:29 06/28/17 04:29 Microbiology Results: Microbiology 06/26/17 14:16 Gastric Biopsy Helicobacter pylori Rapid Urease -negative Assessment and Plan (1) Nausea and vomiting in adult Current visit: Yes Status: Acute Assessment and Plan: Assessment Prepyloric ulcer with gastritis causing gastric outlet obstruction. H. pylori negative Nausea and vomiting secondary to gastric outlet obstruction. Unintentional weight loss Idiopathic peripheral neuropathy Hypothyroidism Chronic anemia - iron deficiency Suspect secondary to chronic GI blood loss secondary to ulcer. CAD Hypertension Hyperlipidemia Hypogonadism Hypothyroidism-RLL 06/28/17 Insomnia Mitral valve disorder Spinal stenosis Vitamin D deficiency GERD Chronic right heel ulceration Thrush-RLL 06/28/17 Plan Continues on Protonix drip. PICC line placed 06/26/17 with initiation of hyperalimentation. Continue per surgeon's orders. H. pylori result is negative. Maintain NPO status with current NG tube in place on suction for bowel decompression. Continue IV fluids with NS with KCl at 30cc/hr for gentle hydration. Completed IV iron infusion. Patient's home felodipine ER was increased to 10mg daily (increased from 5mg daily) on 06/26/17 but he has refused taking the 10mg and states he talked to Dr. Ferrell and he was ok with pt continuing the 5mg. He is also on enalapril. Will continue to monitor pressures. TSH elevated at 9.43 on admission. Currently on 200mcg Synthroid. T3 low 2.34 and T4 1.59. Concern medications not being absorbed well due to ulceration. Will hold off on medication changes at this time. Recommend follow up with PCP for recheck TSH in 4-6 weeks DVT Prophylaxis: SCD's Resuscitation Status: Full Code - Physician Narrative Physician: Jenniffer Chilel MD Narrative: Date: 06/28/17 Time: 1600 I have independently evaluated and examined this patient. I reviewed the chart, the patient's history, and the STEREO MAP PLOTTER OPERATOR/PA's documented findings as above. We discussed and formulated the assessment and plan as above with additions as below: Mr. Cloud complains of a bad taste in his mouth but denied nausea, vomiting, or heartburn. Abdomen is much less distended now than it was on admission per history of his . Patient denies dyspnea, sinus pressure, fevers, or lightheadedness. Faint white plaques on tongue consistent with thrush Trace edema bilateral lower extremities Abdomen soft, nontender, nondistended Will convert from Protonix drip to twice a day dosing IV. Initiate nystatin for thrush. 1 L out NG yesterday. Gastric biopsy pathology pending. Hospital Course Summary Disclaimer: The visit summary below is not to be considered part of the above Progress Note. Hospital Course: 06/24/17 Admit to observation status under the care of Dr. Ferrell. Consult Dr. Baxter for surgical evaluation and anticipated endoscopy. NPO status in anticipation of possible surgical evaluation. Initiate NS 100cc/ hr for hydration. Will obtain upper GI/KUB small bowel series per Dr. Baxter with NG tube placement. Labs on admission relatively unremarkable. Hgb 11.3. Will check B12. Monitor closely. No signs of bleeding on exam. History of anemia. Patient denies history of diabetes. Will check A1c now in addition to TSH. Monitor BGMs and sliding scale insulin as needed. Zofran and Reglan for nausea/vomiting. CRP, lipase and TSH pending. Prealbumin borderline mild protein calorie malnutrition. Consider dietary consult prior to discharge. Will continue home medications. Hold home ASA in anticipation of possible endoscopy and current anemia. Monitor blood pressure closely. Recheck labs in AM to monitor blood counts, electrolytes and renal function. Upon discharge, patient's care will be returned to his PCP, Dr. Hewitt and Dr. Baxter. Patient requests to be a Full CODE. 06/25/17 Patient unable to maintain oral hydration. Patient status changed to inpatient. NG tube was placed with suction. He remains NPO. XR small bowel follow through revealed normal intestinal transit time. Dr. Baxter planning on performing an EGD either later today or tomorrow. Will change IVF to NS with 20 KCl at 75cc/hr as potassium trending down (likely to gastric losses from NG suction). Labs stable. B12 pending. Lipase normal. CRP <5. TSH elevated at 9.43. Currently on 200mcg Synthroid. Will check T3 and T4 and consider increasing dosage. Patient denies history of diabetes. A1c 5.4%. Zofran and Reglan for nausea/vomiting. Prealbumin borderline mild protein calorie malnutrition. Consider dietary consult prior to discharge. 06/26/17 OP DAY - EGD with large prepyloric ulcer resulting in gastric outlet obstruction Patient awaiting endoscopy with Dr. Baxter planned for today. Maintain NPO status with current NG tube in place on suction for bowel decompression. Continue IV fluids with NS with KCl at 75cc/hr for hydration. Blood pressure persistently elevated. Will increase home felodipine ER to 10mg daily (home dose 5mg daily) and continue home enalapril 20mg daily. Tolerated EGD well. Finding large prepyloric ulcer resulting in gastric outlet obstruction - source of pt's persistent nausea and vomiting. Dr Baxter recommends continuing NG for bowel decompression, placing PICC line, and starting TPN. Protonix increased to continuous drip. Hold on Carafate as could potentially worsen outlet obstruction. Will stop diclofenac gel secondary to ulcer. 06/27/17 Continue bowel decompression with NG due to GOO. Monitor NG output to help determine when tube can be removed. TPN for nutritional support secondary to inability to provide oral nutrition due to gastric outlet obstruction. Can discontinue IVF. Continue IV Protonix to held heal ulcer. ALL assay results pending and will determine if treatment for H.pylori is needed. Iron and ferritin levels low. Will have pharm give IV iron to help anemia. TSH elevated at 9.43 on admission. Likely Synthroid medication being bound up with increased gastric contents secondary to GOO. 06/28/17 Convert Protonix drip to twice a day dosing IV. Completed IV iron infusion. Continue TPN and NPO status and NG tube. H. pylori result is negative. Patient's home felodipine ER was increased to 10mg daily (increased from 5mg daily) on 06/26/17 but patient prefers continuation of home dose. Thrush present on exam-nystatin suspension initiated.
[2017-06-28] MEDS: [UNRECOGNIZED DRUG - OTHER] IV SCH (15:15)
[2017-06-28] MEDS: SODIUM ACETATE IV SCH (15:15)
[2017-06-28] MEDS: POTASSIUM CHLORIDE IV SCH (15:15)
[2017-06-28] MEDS: NYSTATIN 500,000 units/5 ml ORAL LIQUID PO SCH ×2 (16:27→21:53)
[2017-06-28] MEDS: FAT EMULSION 20% 100 ML IV SCH (17:49)
[2017-06-28] MEDS: PANTOPRAZOLE 40 MG INJECTION IVP SCH (21:53)
[2017-06-28] MEDS: GABAPENTIN 600 MG TABLET PO SCH (22:08)
[2017-06-28] MEDS: ATORVASTATIN 20 MG TABLET PO SCH (22:10)
[2017-06-28] MEDS: PRAMIPEXOLE 1 MG TABLET PO SCH (22:10)
[2017-06-29] MEDS: MORPHINE SULFATE 4mg INJECTION IVP PRN ×5 (01:11→23:59)
[2017-06-29] MEDS: SALINE FLUSH 10ml SYRINGE IV PRN ×2 (06:22→18:22)
[2017-06-29] MEDS: LEVOTHYROXINE 200 MCG TABLET PO SCH (08:18)
[2017-06-29] MEDS: MULTI-VITAMIN + MINERAL TABLET PO SCH (08:18)
[2017-06-29] MEDS: NYSTATIN 500,000 units/5 ml ORAL LIQUID PO SCH ×4 (08:19→20:16)
[2017-06-29] MEDS: GABAPENTIN 300 MG CAPSULE PO SCH ×3 (08:19→17:10)
[2017-06-29] MEDS: METOCLOPRAMIDE 10mg/2ml INJECTION IVP SCH ×4 (08:19→20:17)
[2017-06-29] MEDS: PANTOPRAZOLE 40 MG INJECTION IVP SCH ×2 (08:20→20:18)
[2017-06-29] MEDS: HYDROCODONE/APAP 5mg/325mg TABLET PO PRN (08:23)
--- NOTE | 2017-06-29 11:00 | Pharmacy Consult-TPN/PPN ---
Pharmacy Consult-TPN/PPN - Laboratory Information Chemistry Turbidity < 20 (0-20) 06/29/17 04:01 Sodium 140 MEQ/L (134-144) 06/29/17 04:01 Potassium 4.0 MEQ/L (3.6-5) 06/29/17 04:01 Chloride 104 MEQ/L (98-107) 06/29/17 04:01 Carbon Dioxide 28 MEQ/L (22-30) 06/29/17 04:01 Anion Gap 8 meq/L (5-15) 06/29/17 04:01 BUN 18.0 MG/DL (9-20) 06/29/17 04:01 Creatinine 0.8 mg/dL (0.8-1.5) 06/29/17 04:01 GFR Calculation 95 06/29/17 04:01 BUN/Creatinine Ratio 23 RATIO (6-26) 06/29/17 04:01 Glucose 117 MG/DL (75-110) H 06/29/17 04:01 Glucometer 141 mg/dL (65-110) 06/29/17 06:01 Hemoglobin A1c 5.4 % (4.0-5.7) 06/24/17 14:16 Calculated Osmolality 272 MOSM/KG (261-280) 06/29/17 04:01 Calcium 8.6 MG/DL (8.4-10.2) 06/29/17 04:01 Phosphorus 3.4 MG/DL (2.5-4.5) 06/29/17 04:01 Magnesium 2.3 MG/DL (1.6-2.3) 06/28/17 04:29 Iron 43 ug/dL (49-181) L 06/24/17 14:16 Ferritin 8.18 ng/mL (18-464) L 06/24/17 14:16 Total Bilirubin 1.20 MG/DL (0.20-1.30) 06/28/17 04:29 Conjugated Bilirubin 0.00 mg/dL (0.00-0.30) 06/24/17 14:16 Unconjugated Bilirubin 0.60 mg/dL (0.00-1.1) 06/24/17 14:16 Icterus Index < 2 (0-7) 06/29/17 04:01 AST 20 U/L (17-59) 05/05/18 04:29 ALT 17 U/L (1-50) 06/28/17 04:29 Alkaline Phosphatase 58 U/L (38-126) 06/28/17 04:29 C-Reactive Protein < 5.0 mg/L (0-9) 06/24/17 14:16 Total Protein 5.8 g/dL (6.3-8.2) L 06/28/17 04:29 Albumin 3.3 g/dL (3.5-5.0) L 06/28/17 04:29 Globulin 2.5 G/DL (2.4-3.6) 06/28/17 04:29 Albumin/Globulin Ratio 1.3 RATIO (1.1-2.2) 06/28/17 04:29 Prealbumin 15.7 mg/dL (17.6-36.0) L 06/24/17 14:16 Lipase 281 U/L (23-300) 06/24/17 14:16 Vitamin B12 > 1000 pg/mL (239-931) H 06/24/17 14:16 TSH 9.43 mIU/L (0.47-4.68) H 06/24/17 14:16 Free T4 1.59 ng/dL (0.78-2.19) 06/26/17 05:16 Free T3 2.34 PG/ML (2.77-5.27) L 06/26/17 05:16 Specimen Hemolysis < 15 (0-25) 06/29/17 04:01 Intake and Output 06/28/17 06/29/17 06/30/17 06:59 06:59 06:59 Intake Total 1296.5 / 1296.5 4149.75 / 4149.75 Output Total 1050 / 1050 3100 / 3100 480 / 480 Balance 246.5 / 246.5 1049.75 / 1049.75 -480 / -480 Weight 67.4 kg 40.2 kg Intake: IV 1296.5 / 1296.5 4129.75 / 4129.75 Fat Emulsion 20% 100 ml @ 50 100 / 100 100 / 100 mls/hr IV 1800 [facility] Rx#: [id number] Iron Dextran 75 mg In Ns 50 ml 51.5 / 51.5 @ 50 mls/hr IV O ONE Rx#: [id number] NS with KCL 20 mEq 1,000 ml @ 645.0 / 645.0 567 / 567 30 mls/hr IV .Q24H [facility] Rx#: [id number] Pantoprazole IV 80 mg In NS 500 / 500 401.25 / 401.25 250ml 250 ml @ 8 MG/HR 25 mls/ hr IV .Q10H [facility] Rx#:[id number] Sodium Acetate 80 meq Potassium 3061.5 / 3061.5 Chloride Inj 40 meq POTASSIUM PHOSPHATE (mEq) 60 meq Magnesium Sulfate Inj 16 meq Calcium Gluconate 9.3 meq Multi -Vit Infusion 10 ml Multi- Trace Elements 1 ml Potassium Acetate Inj 20 meq In TPN - Custom Formula 2,000 ml @ 90 mls/hr IV .[id number] [facility] Rx#: [id number] Oral Output: Urine 1050 / 1050 1450 / 1450 480 / 480 Gastric Drainage 1650 / 1650 Right Nare 1650 / 1650 Other: Urine Appearance Clear Clear Clear Urine Color Yellow Yellow Yellow Urine Odor Normal Normal # Voids 2 - Consult Information Serum potassium trending up to 4.0 and phosphorous is up to 3.4. We will consider removing potassium acetate on 06/30/17 if serum K continues to increase. Decrease potassium phosphate to 40mEq per bag if phosphorous continue to increase. Continue same TPN rate at 90mL per hour with peripheral fluid at 30mL per hour. Continue fat emulsion 20% 100mL daily. Thanks
[2017-06-29] MEDS ORDERED: DICLOFENAC 1% TOP GEL 100gm TP PRN (11:46)
--- NOTE | 2017-06-29 14:20 | Progress Note ---
- Date 06/29/17 Subjective: Jori is seen today in follow up. He is feeling fairly well- is tired of having NGT in. Denies any nausea or vomiting. Is not passing any gas- did have some belching earlier. Reports that he has "gotten used" to the Morphine for his neuropathic pain, so is worried about coming off of that. Is hopeful he will be able to try soft diet tomorrow. Wants to eat, but reports he is really not very hungry. Chewing gum during our visit. No other acute c/o reported. Objective Vital signs: Temperature 97.5 F 06/29/17 12:00 Pulse Rate 68 06/29/17 12:00 Respiratory Rate 16 06/29/17 12:00 Blood Pressure 160/86 H 06/29/17 12:00 Pulse Oximetry 97 06/29/17 12:00 Height/Weight/BMI: Height 1.73 m Weight 67.7 kg Body Mass Index 23.3 - Constitutional Present: no acute distress, well nourished, well developed, average body habitus , cooperative - Routine HEENT Exam Head: Present: normocephalic, atraumatic Eye: Present: EOMI, PERRL ENT: Present: mucous membranes dry - Routine Respiratory Exam Present: CTA bilaterally. Absent: rhonchi, wheezes, crackles - Routine Cardiovascular Exam Present: RRR, S1, S2 - Routine Abdominal Exam Present: soft, drain (NGT LIS). Absent: normoactive bowel sounds, non distended , non tender - Routine Extremities Exam Present: no edema, tenderness (Left foot, chronic due to neuropathy) - Routine Musculoskeletal Exam Musculoskeletal: Present: normal strength, moving extremities well - Routine Skin Exam Present: intact, dry, warm - Routine Neurological Exam Present: alert, oriented X3, moving all extremities - Routine Psychiatric Exam Present: normal affect, normal thought process, cooperative Results - Labs CBC & Chem 7: 06/28/17 04:29 06/29/17 04:01 Microbiology Results: Microbiology 06/26/17 14:16 Gastric Biopsy Helicobacter pylori Rapid Urease - Final Assessment and Plan (1) Nausea and vomiting in adult Current visit: Yes Status: Acute Assessment and Plan: Assessment Prepyloric ulcer with gastritis causing gastric outlet obstruction. H. pylori negative Nausea and vomiting secondary to gastric outlet obstruction. Unintentional weight loss Idiopathic peripheral neuropathy Hypothyroidism Chronic anemia - iron deficiency Suspect secondary to chronic GI blood loss secondary to ulcer. CAD Hypertension Hyperlipidemia Hypogonadism Hypothyroidism-RLL 06/28/17 Insomnia Mitral valve disorder Spinal stenosis Vitamin D deficiency GERD Chronic right heel ulceration Thrush-RLL 06/28/17 Plan 06/29/17 Continues on Protonix - now IV BID. PICC line placed 06/26/17 with initiation of hyperalimentation. Continue per surgeon's orders. H. pylori result is negative. Pathology is pending. Maintain NPO status with current NG tube in place on suction for bowel decompression- hoping for removal tomorrow. Continue IV fluids with NS with KCl at 30cc/hr for gentle hydration. Completed IV iron infusion. Felodipine 5mg as pt was not willing for that to be increased. Vasotec 20mg. BP is running high. Consider adjusting meds if pt will allow or add Lasix to help offload fluid. He does not appear acutely fluid overloaded. He is on 5mg of Bystolic- could increase that as well. TSH elevated at 9.43 on admission. Currently on 200mcg Synthroid. T3 low 2.34 and T4 1.59. If still NPO tomorrow, consider changing to IV dosing. (Concern medications not being absorbed well due to ulceration. Will hold off on medication changes at this time. Recommend follow up with PCP for recheck TSH in 4-6 weeks.) Mild hyperglycemia intermittently while on TPN. Monitor. Repeat labs in AM for stability. DVT Prophylaxis: SCD's GI Prophylaxis: Protonix Resuscitation Status: Full Code - Physician Narrative Physician: Jenniffer Chilel MD Narrative: Date: 06/29/17 Time: 1630 I have independently evaluated and examined this patient. I reviewed the chart, the patient's history, and the COLLECTION ANALYST/PA's documented findings as above. We discussed and formulated the assessment and plan as above with additions as below: Mr. Cloud reported no concerns today, his been ambulating in the halls with NG clamped. He denied dyspnea or pain excluding discomfort from the NG and chronic neuropathy. Abdomen soft, nontender, NG to suction at time of my evaluation Patient alert and cooperative, fluent speech We will clarify plans with Dr. Baxter in the morning-Gastrografin per NG prior to starting liquids to evaluate flow versus simply clamping NG and starting po liquids. Generally doing well other than variable blood pressure. Hospital Course Summary Disclaimer: The visit summary below is not to be considered part of the above Progress Note. Hospital Course: 06/24/17 Admit to observation status under the care of Dr. Ferrell. Consult Dr. Baxter for surgical evaluation and anticipated endoscopy. NPO status in anticipation of possible surgical evaluation. Initiate NS 100cc/ hr for hydration. Will obtain upper GI/KUB small bowel series per Dr. Baxter with NG tube placement. Labs on admission relatively unremarkable. Hgb 11.3. Will check B12. Monitor closely. No signs of bleeding on exam. History of anemia. Patient denies history of diabetes. Will check A1c now in addition to TSH. Monitor BGMs and sliding scale insulin as needed. Zofran and Reglan for nausea/vomiting. CRP, lipase and TSH pending. Prealbumin borderline mild protein calorie malnutrition. Consider dietary consult prior to discharge. Will continue home medications. Hold home ASA in anticipation of possible endoscopy and current anemia. Monitor blood pressure closely. Recheck labs in AM to monitor blood counts, electrolytes and renal function. Upon discharge, patient's care will be returned to his PCP, Dr. Hewitt and Dr. Baxter. Patient requests to be a Full CODE. 06/25/17 Patient unable to maintain oral hydration. Patient status changed to inpatient. NG tube was placed with suction. He remains NPO. XR small bowel follow through revealed normal intestinal transit time. Dr. Baxter planning on performing an EGD either later today or tomorrow. Will change IVF to NS with 20 KCl at 75cc/hr as potassium trending down (likely to gastric losses from NG suction). Labs stable. B12 pending. Lipase normal. CRP <5. TSH elevated at 9.43. Currently on 200mcg Synthroid. Will check T3 and T4 and consider increasing dosage. Patient denies history of diabetes. A1c 5.4%. Zofran and Reglan for nausea/vomiting. Prealbumin borderline mild protein calorie malnutrition. Consider dietary consult prior to discharge. 06/26/17 OP DAY - EGD with large prepyloric ulcer resulting in gastric outlet obstruction Patient awaiting endoscopy with Dr. Baxter planned for today. Maintain NPO status with current NG tube in place on suction for bowel decompression. Continue IV fluids with NS with KCl at 75cc/hr for hydration. Blood pressure persistently elevated. Will increase home felodipine ER to 10mg daily (home dose 5mg daily) and continue home enalapril 20mg daily. Tolerated EGD well. Finding large prepyloric ulcer resulting in gastric outlet obstruction - source of pt's persistent nausea and vomiting. Dr Baxter recommends continuing NG for bowel decompression, placing PICC line, and starting TPN. Protonix increased to continuous drip. Hold on Carafate as could potentially worsen outlet obstruction. Will stop diclofenac gel secondary to ulcer. 06/27/17 Continue bowel decompression with NG due to GOO. Monitor NG output to help determine when tube can be removed. TPN for nutritional support secondary to inability to provide oral nutrition due to gastric outlet obstruction. Can discontinue IVF. Continue IV Protonix to held heal ulcer. ALL assay results pending and will determine if treatment for H.pylori is needed. Iron and ferritin levels low. Will have pharm give IV iron to help anemia. TSH elevated at 9.43 on admission. Likely Synthroid medication being bound up with increased gastric contents secondary to GOO. 06/28/17 Convert Protonix drip to twice a day dosing IV. Completed IV iron infusion. Continue TPN and NPO status and NG tube. H. pylori result is negative. Patient's home felodipine ER was increased to 10mg daily (increased from 5mg daily) on 06/26/17 but patient prefers continuation of home dose. Thrush present on exam-nystatin suspension initiated. 06/29/17 Continues on Protonix - now IV BID. PICC line placed 06/26/17 with initiation of hyperalimentation. Continue per surgeon's orders. H. pylori result is negative. Pathology is pending. Maintain NPO status with current NG tube in place on suction for bowel decompression- hoping for removal tomorrow. Continue IV fluids with NS with KCl at 30cc/hr for gentle hydration. Completed IV iron infusion. Felodipine 5mg as pt was not willing for that to be increased. Vasotec 20mg. BP is running high. Consider adjusting meds if pt will allow or add Lasix to help offload fluid. He does not appear acutely fluid overloaded. He is on 5mg of Bystolic- could increase that as well. TSH elevated at 9.43 on admission. Currently on 200mcg Synthroid. T3 low 2.34 and T4 1.59. If still NPO tomorrow, consider changing to IV dosing. (Concern medications not being absorbed well due to ulceration. Will hold off on medication changes at this time. Recommend follow up with PCP for recheck TSH in 4-6 weeks.) Mild hyperglycemia intermittently while on TPN. Monitor. Repeat labs in AM for stability.
[2017-06-29] MEDS: POTASSIUM CHLORIDE IV SCH (15:11)
[2017-06-29] MEDS: [UNRECOGNIZED DRUG - OTHER] IV SCH (15:11)
[2017-06-29] MEDS: SODIUM ACETATE IV SCH (15:11)
[2017-06-29] MEDS: FAT EMULSION 20% 100 ML IV SCH (17:10)
[2017-06-29] MEDS: PRAMIPEXOLE 1 MG TABLET PO SCH (20:16)
[2017-06-29] MEDS: ATORVASTATIN 20 MG TABLET PO SCH (20:16)
[2017-06-29] MEDS: GABAPENTIN 600 MG TABLET PO SCH (20:17)
[2017-06-29] MEDS: NS with KCL 20 mEq 1,000 ML IV SCH (20:22)
[2017-06-30] MEDS: LEVOTHYROXINE 200 MCG TABLET PO SCH (06:20)
[2017-06-30] MEDS: PANTOPRAZOLE 40 MG INJECTION IVP SCH ×2 (08:11→21:09)
[2017-06-30] MEDS: SALINE FLUSH 10ml SYRINGE IV PRN ×9 (08:11→21:36)
[2017-06-30] MEDS: METOCLOPRAMIDE 10mg/2ml INJECTION IVP SCH ×4 (08:12→21:09)
[2017-06-30] MEDS: MULTI-VITAMIN + MINERAL TABLET PO SCH (08:12)
[2017-06-30] MEDS: NYSTATIN 500,000 units/5 ml ORAL LIQUID PO SCH ×4 (08:12→21:10)
[2017-06-30] MEDS: GABAPENTIN 300 MG CAPSULE PO SCH ×3 (08:13→16:58)
--- NOTE | 2017-06-30 08:25 | Progress Note ---
DATE OF VISIT 06/28/2017 REASON FOR VISIT Covering surgical care for Dr. Baxter. SUBJECTIVE Jori is doing well. He denies any abdominal pain. OBJECTIVE VITAL SIGNS: Afebrile with stable vitals on room air. GENERAL: The patient is awake and alert, in no acute distress. ABDOMEN: Soft, nontender, nondistended. IMPRESSION 71-year-old male with gastric outlet obstruction secondary to peptic ulcer disease - stable. PLAN Continue n.p.o. and TPN for the weekend. CESAR
--- NOTE | 2017-06-30 08:52 | General Surgery Progress Note ---
Subjective Narrative: States he has had 3 liquid stools in the last about 12 hours and a lot of flatus. The NG is irritating. Denies abd pain, nausea. NG has been clamped periodically for PO meds. He has been taking ice chips, gum, and mints. Unsure of NG output, no gastric drainage has been documented for 2 days, there is about 200 ml thin yellowish fluid in the canister and NG is connected. - Vital Signs Last Vital Signs Temp 97.7 F 06/30/17 04:00 Pulse 79 06/30/17 04:00 Resp 12 06/30/17 04:00 BP 149/81 H 06/30/17 04:00 Pulse Ox 96 06/30/17 04:00 - Laboratory Result Diagrams: 06/30/17 03:53 06/30/17 03:53 - Normal Exam General: awake, alert, oriented Respiratory: clear bilaterally, no labored breathing Abdominal: soft, no guarding, non-tender, other (NG clamped currently for PO meds) Assessment and Plan (1) Nausea and vomiting in adult Current Visit: Yes Status: Acute (2) Weight loss, unintentional Current Visit: Yes Status: Acute Plan: Talked to Dr. Baxter regarding above, will order upper GI with gastrgrafin through NG, talked to Chino Burton about details of exam. Hospital Course Summary Disclaimer: The visit summary below is not to be considered part of the above Progress Note. Hospital Course: 06/24/17 Admit to observation status under the care of Dr. Ferrell. Consult Dr. Baxter for surgical evaluation and anticipated endoscopy. NPO status in anticipation of possible surgical evaluation. Initiate NS 100cc/ hr for hydration. Will obtain upper GI/KUB small bowel series per Dr. Baxter with NG tube placement. Labs on admission relatively unremarkable. Hgb 11.3. Will check B12. Monitor closely. No signs of bleeding on exam. History of anemia. Patient denies history of diabetes. Will check A1c now in addition to TSH. Monitor BGMs and sliding scale insulin as needed. Zofran and Reglan for nausea/vomiting. CRP, lipase and TSH pending. Prealbumin borderline mild protein calorie malnutrition. Consider dietary consult prior to discharge. Will continue home medications. Hold home ASA in anticipation of possible endoscopy and current anemia. Monitor blood pressure closely. Recheck labs in AM to monitor blood counts, electrolytes and renal function. Upon discharge, patient's care will be returned to his PCP, Dr. Hewitt and Dr. Baxter. Patient requests to be a Full CODE. 06/25/17 Patient unable to maintain oral hydration. Patient status changed to inpatient. NG tube was placed with suction. He remains NPO. XR small bowel follow through revealed normal intestinal transit time. Dr. Baxter planning on performing an EGD either later today or tomorrow. Will change IVF to NS with 20 KCl at 75cc/hr as potassium trending down (likely to gastric losses from NG suction). Labs stable. B12 pending. Lipase normal. CRP <5. TSH elevated at 9.43. Currently on 200mcg Synthroid. Will check T3 and T4 and consider increasing dosage. Patient denies history of diabetes. A1c 5.4%. Zofran and Reglan for nausea/vomiting. Prealbumin borderline mild protein calorie malnutrition. Consider dietary consult prior to discharge. 06/26/17 OP DAY - EGD with large prepyloric ulcer resulting in gastric outlet obstruction Patient awaiting endoscopy with Dr. Baxter planned for today. Maintain NPO status with current NG tube in place on suction for bowel decompression. Continue IV fluids with NS with KCl at 75cc/hr for hydration. Blood pressure persistently elevated. Will increase home felodipine ER to 10mg daily (home dose 5mg daily) and continue home enalapril 20mg daily. Tolerated EGD well. Finding large prepyloric ulcer resulting in gastric outlet obstruction - source of pt's persistent nausea and vomiting. Dr Baxter recommends continuing NG for bowel decompression, placing PICC line, and starting TPN. Protonix increased to continuous drip. Hold on Carafate as could potentially worsen outlet obstruction. Will stop diclofenac gel secondary to ulcer. 06/27/17 Continue bowel decompression with NG due to GOO. Monitor NG output to help determine when tube can be removed. TPN for nutritional support secondary to inability to provide oral nutrition due to gastric outlet obstruction. Can discontinue IVF. Continue IV Protonix to held heal ulcer. ALL assay results pending and will determine if treatment for H.pylori is needed. Iron and ferritin levels low. Will have pharm give IV iron to help anemia. TSH elevated at 9.43 on admission. Likely Synthroid medication being bound up with increased gastric contents secondary to GOO. 06/28/17 Convert Protonix drip to twice a day dosing IV. Completed IV iron infusion. Continue TPN and NPO status and NG tube. H. pylori result is negative. Patient's home felodipine ER was increased to 10mg daily (increased from 5mg daily) on 06/26/17 but patient prefers continuation of home dose. Thrush present on exam-nystatin suspension initiated. 06/29/17 Continues on Protonix - now IV BID. PICC line placed 06/26/17 with initiation of hyperalimentation. Continue per surgeon's orders. H. pylori result is negative. Pathology is pending. Maintain NPO status with current NG tube in place on suction for bowel decompression- hoping for removal tomorrow. Continue IV fluids with NS with KCl at 30cc/hr for gentle hydration. Completed IV iron infusion. Felodipine 5mg as pt was not willing for that to be increased. Vasotec 20mg. BP is running high. Consider adjusting meds if pt will allow or add Lasix to help offload fluid. He does not appear acutely fluid overloaded. He is on 5mg of Bystolic- could increase that as well. TSH elevated at 9.43 on admission. Currently on 200mcg Synthroid. T3 low 2.34 and T4 1.59. If still NPO tomorrow, consider changing to IV dosing. (Concern medications not being absorbed well due to ulceration. Will hold off on medication changes at this time. Recommend follow up with PCP for recheck TSH in 4-6 weeks.) Mild hyperglycemia intermittently while on TPN. Monitor. Repeat labs in AM for stability.
[2017-06-30] MEDS ORDERED: DIATRIZOATE MEGLUMINE/SOD. (66%/10%) 120ml SOLN ONE (08:53)
--- NOTE | 2017-06-30 09:05 | Progress Note ---
DATE OF VISIT 06/29/2017 REASON FOR VISIT Covering surgical care for Dr. Baxter. SUBJECTIVE Jori still denies any abdominal pain. He is tired of having the NG tube in place. ASSESSMENT 71-year-old male with gastric outlet obstruction due to peptic ulcer disease - stable from a surgical standpoint. PLAN Continue NG tube and TPN until tomorrow. Dr. Baxter will be returning tomorrow and can determine if Jori is ready for a trial of a liquid diet. Dr. Chilel had mentioned consideration of a Gastrografin upper GI to evaluate flow out of the stomach. I will let Dr. Baxter decide on the plan tomorrow. [facility]
[2017-06-30] MEDS: MORPHINE SULFATE 4mg INJECTION IVP PRN ×3 (13:58→21:36)
--- NOTE | 2017-06-30 15:20 | Progress Note ---
- Date 06/30/17 Subjective: oJri just returned from a walk in the hallway with his . He denies feeling dizzy, lightheaded or weak. He denies any shortness of breath with exertion or at rest. The NG tube is irritating to his nose and his throat. He is starting to get an appetite back and is looking forward to trying clear liquids today. He has been having diarrhea. Objective Vital signs: Temperature 96.7 F L 06/30/17 11:48 Pulse Rate 60 06/30/17 11:48 Respiratory Rate 16 06/30/17 13:58 Blood Pressure 115/69 06/30/17 11:48 Pulse Oximetry 96 06/30/17 11:48 Height/Weight/BMI: Height 1.73 m Weight 67.7 kg Body Mass Index 23.3 - Constitutional Present: no acute distress, well nourished, well developed - Routine HEENT Exam Head: Present: normocephalic Eye: Present: PERRL. Absent: conjunctival icterus, scleral injection ENT: Present: mucous membranes moist Comments: NG tube - Routine Respiratory Exam Present: CTA bilaterally - Routine Cardiovascular Exam Present: RRR, S1, S2 - Routine Abdominal Exam Present: soft, normoactive bowel sounds (hyperactive), non distended, non tender - Routine Extremities Exam Present: no edema, pulses intact - Routine Skin Exam Present: intact, dry, warm - Routine Neurological Exam Present: alert, oriented X3, CN II-XII intact, moving all extremities, normal speech - Routine Psychiatric Exam Present: normal affect, normal thought process, cooperative Results - Labs CBC & Chem 7: 06/30/17 03:53 06/30/17 03:53 Microbiology Results: Microbiology 06/26/17 14:16 Gastric Biopsy Helicobacter pylori Rapid Urease - Final Assessment and Plan (1) Nausea and vomiting in adult Current visit: Yes Status: Acute Assessment and Plan: Assessment Prepyloric ulcer with gastritis causing gastric outlet obstruction. H. pylori negative Nausea and vomiting secondary to gastric outlet obstruction. Unintentional weight loss Idiopathic peripheral neuropathy Hypothyroidism Chronic anemia - iron deficiency Suspect secondary to chronic GI blood loss secondary to ulcer. CAD Hypertension Hyperlipidemia Hypogonadism Hypothyroidism-RLL 06/28/17 Insomnia Mitral valve disorder Spinal stenosis Vitamin D deficiency GERD Chronic right heel ulceration Thrush Plan 06/30/17 Upper GI is consistent with gastric outlet obstruction secondary to prepyloric ulcer. Dr. Chilel discussed with Dr. Baxter: Will advance diet to clear liquids but leave NG tube in, clamping during times of intake. Continue hyperalimentation. Continue Protonix IV. Still requiring intermittent doses of high risk medication IV morphine to control pain. Discontinue normal saline with potassium. Blood pressure has been moderately elevated; though patient has been reluctant to increase antihypertensives. Discussed with RN and with Dr. Chilel. DVT Prophylaxis: SCD's GI Prophylaxis: Protonix Resuscitation Status: Full Code - Physician Narrative Physician: Jenniffer Chilel MD Narrative: Date: 06/30/17 Time: 1754 I have independently evaluated and examined this patient. I reviewed the chart, the patient's history, and the PICKLE [employer]KER/PA's documented findings as above. We discussed and formulated the assessment and plan as above with additions as below: Mr. Cloud is has had the NG clamped all day for Gastrografin UGI. He denies nausea, abdominal cramping, or pain. He had a couple bowel movements several hours after Gastrografin administration. NAD, alert Respirations nonlabored Abdomen soft, nontender, bowel sounds present with NG clamped. Upper GI reviewed by myself-slow emptying of Gastrografin from the stomach, residual Gastrografin present at 3 hours. Above results discussed with Dr. Baxter; clear liquids being initiated. Patient aware that if he develops nausea and NG will need to return to suction. Hospital Course Summary Disclaimer: The visit summary below is not to be considered part of the above Progress Note. Hospital Course: 06/24/17 Admit to observation status under the care of Dr. Ferrell. Consult Dr. Baxter for surgical evaluation and anticipated endoscopy. NPO status in anticipation of possible surgical evaluation. Initiate NS 100cc/ hr for hydration. Will obtain upper GI/KUB small bowel series per Dr. Baxter with NG tube placement. Labs on admission relatively unremarkable. Hgb 11.3. Will check B12. Monitor closely. No signs of bleeding on exam. History of anemia. Patient denies history of diabetes. Will check A1c now in addition to TSH. Monitor BGMs and sliding scale insulin as needed. Zofran and Reglan for nausea/vomiting. CRP, lipase and TSH pending. Prealbumin borderline mild protein calorie malnutrition. Consider dietary consult prior to discharge. Will continue home medications. Hold home ASA in anticipation of possible endoscopy and current anemia. Monitor blood pressure closely. Recheck labs in AM to monitor blood counts, electrolytes and renal function. Upon discharge, patient's care will be returned to his PCP, Dr. Hewitt and Dr. Baxter. Patient requests to be a Full CODE. 06/25/17 Patient unable to maintain oral hydration. Patient status changed to inpatient. NG tube was placed with suction. He remains NPO. XR small bowel follow through revealed normal intestinal transit time. Dr. Baxter planning on performing an EGD either later today or tomorrow. Will change IVF to NS with 20 KCl at 75cc/hr as potassium trending down (likely to gastric losses from NG suction). Labs stable. B12 pending. Lipase normal. CRP <5. TSH elevated at 9.43. Currently on 200mcg Synthroid. Will check T3 and T4 and consider increasing dosage. Patient denies history of diabetes. A1c 5.4%. Zofran and Reglan for nausea/vomiting. Prealbumin borderline mild protein calorie malnutrition. Consider dietary consult prior to discharge. 06/26/17 OP DAY - EGD with large prepyloric ulcer resulting in gastric outlet obstruction Patient awaiting endoscopy with Dr. Baxter planned for today. Maintain NPO status with current NG tube in place on suction for bowel decompression. Continue IV fluids with NS with KCl at 75cc/hr for hydration. Blood pressure persistently elevated. Will increase home felodipine ER to 10mg daily (home dose 5mg daily) and continue home enalapril 20mg daily. Tolerated EGD well. Finding large prepyloric ulcer resulting in gastric outlet obstruction - source of pt's persistent nausea and vomiting. Dr Baxter recommends continuing NG for bowel decompression, placing PICC line, and starting TPN. Protonix increased to continuous drip. Hold on Carafate as could potentially worsen outlet obstruction. Will stop diclofenac gel secondary to ulcer. 06/27/17 Continue bowel decompression with NG due to GOO. Monitor NG output to help determine when tube can be removed. TPN for nutritional support secondary to inability to provide oral nutrition due to gastric outlet obstruction. Can discontinue IVF. Continue IV Protonix to held heal ulcer. ALL assay results pending and will determine if treatment for H.pylori is needed. Iron and ferritin levels low. Will have pharm give IV iron to help anemia. TSH elevated at 9.43 on admission. Likely Synthroid medication being bound up with increased gastric contents secondary to GOO. 06/28/17 Convert Protonix drip to twice a day dosing IV. Completed IV iron infusion. Continue TPN and NPO status and NG tube. H. pylori result is negative. Patient's home felodipine ER was increased to 10mg daily (increased from 5mg daily) on 06/26/17 but patient prefers continuation of home dose. Thrush present on exam-nystatin suspension initiated. 06/29/17 Continues on Protonix - now IV BID. PICC line placed 06/26/17 with initiation of hyperalimentation. H. pylori result is negative. Pathology is pending. Maintain NPO status with current NG tube in place on suction for bowel decompression- hoping for removal tomorrow. Continue IV fluids with NS with KCl at 30cc/hr for gentle hydration. Completed IV iron infusion. Felodipine 5mg as pt was not willing for that to be increased. Vasotec 20mg. BP is running high. Consider adjusting meds if pt will allow or add Lasix to help offload fluid. He does not appear acutely fluid overloaded. He is on 5mg of Bystolic- could increase that as well. TSH elevated at 9.43 on admission. Currently on 200mcg Synthroid. T3 low 2.34 and T4 1.59. If still NPO tomorrow, consider changing to IV dosing. (Concern medications not being absorbed well due to ulceration. Will hold off on medication changes at this time. Recommend follow up with PCP for recheck TSH in 4-6 weeks.) Mild hyperglycemia intermittently while on TPN. Monitor. 06/30/17 Upper GI is consistent with gastric outlet obstruction secondary to prepyloric ulcer. Dr. Chilel discussed with Dr. Baxter: Will advance diet to clear liquids but leave NG tube in, clamping during times of intake. Continue hyperalimentation. Continue Protonix IV. Discontinue normal saline with potassium.
[2017-06-30] MEDS: POTASSIUM CHLORIDE IV SCH (15:30)
[2017-06-30] MEDS: SODIUM ACETATE IV SCH (15:30)
[2017-06-30] MEDS: [UNRECOGNIZED DRUG - OTHER] IV SCH (15:30)
--- NOTE | 2017-06-30 15:52 | Wound Care Progress Note ---
Wound Center Progress Note: Pt seen for wound consultation r/t R heel. Pt is seen at the [facility] by Dr. Baxter for a non-healing wound to the R heel. Pt was last seen in the wound clinic 06/24/17. Pt denies pain, pt recently received morphine for abdominal pain. Pt resting in chair, family at bedside. R heel: wound bed 100% slough, dressing removed had small serosanguineous drainage, slight malodor, no active drainage. Periwound: macerated. At clinic wound tx plan included Aquacel Ag/mepilex, change q 3 days. Aquacel Ag and mepilex re- applied to wound, to be changed q 3 days. Off load heel with regular repositioning.
--- NOTE | 2017-06-30 15:56 | Wound Care Progress Note ---
Wound Management - Patient Status Premedicated Prior to Dressing Change: Yes (Morphine given earlier for abdominal pain) - Wound Right Heel Wound Type: chronic non-healing wound Wound Present on Admission?: Yes Length: 1.2 Width: 0.6 Depth: 0.7 Wound Bed Appearance: Slough [place] Wound Appearance: Macerated Tunneling: No Undermining: No Drainage Description: Serosanguineous Drainage Amount: Small Drainage Odor: Slight Odor Dressing Status: Changed Primary Dressing: Silver Dressing Secondary Dressing: Foam Dressing Dressing Change Date: 06/30/17 Dressing Change Time: 15:30 Dressing Change Patient Tolerance: Tolerated Well (To wound bed: Aquacel Ag, cover with Mepilex, change q 3 days.)
--- NOTE | 2017-06-30 17:04 | Fluoroscopy Report ---
Indication:check for gatric emptying Procedure:FL upper GI contrast x 1 UPPER GI WITHOUT AIR CONTRAST THROUGH NG TUBE: Technique: Several research attorney fluoroscopic images were obtained. Approximately 240 cc of dilute Gastrografin were slowly administered through the existing NG tube without difficulty. Immediate fluoroscopic images of the stomach were obtained. Plain film abdominal radiographs were obtained in timed intervals to monitor gastric motility of contrast. Findings: The tip of the NG tube is located in the distal esophagus, approximately 5 cm from the GE junction. After contrast administration, contrast was not immediately visualized emptying into the duodenum. The 20 minute delayed radiograph shows a small amount of contrast throughout the duodenum. The one hour delayed radiograph shows contrast throughout a majority of the small bowel with a large amount of residual contrast in the stomach. The three hour delayed radiograph shows a moderate amount of residual contrast in the stomach, with contrast throughout the small bowel and colon. There is no evidence of a small bowel obstruction. Impression: 1. Tip of the NG tube is located in the distal esophagus, approximately 3 cm from the GE junction. 2. Findings suggestive of possible delayed gastric emptying of dilute Gastrografin with a moderate amount of contrast in the stomach after three hours. 3. The NG tube is approximately 5 cm above the expected location of the GE junction. Fluoroscopy Dose: 35.10 mGy (Cumulative air kerma) Bryan Burton RPA/JOAQUÍN performed this under my direct supervision. .
[2017-06-30] MEDS: FAT EMULSION 20% 100 ML IV SCH (17:57)
--- NOTE | 2017-06-30 19:31 | Progress Note ---
DATE OF SERVICE 06/30/2017 FINDINGS Mr. Cloud was seen this evening on rounds. He was without complaints. His G- tube had been clamped the majority of the day. He has been taking in liquids without difficulty today. PHYSICAL EXAM VITAL SIGNS: Temperature 96.7, pulse 63, respirations 16, blood pressure 112/66 , SAO2 96% on room air. HEENT: Normocephalic. Pupils are equally round and react to light and accommodation. CHEST: Clear to auscultation bilaterally. HEART: Regular rate and rhythm. Normal S1 and S2 without gallops, murmurs or clicks. ABDOMEN: Palpation of the abdomen reveals it to be soft and nontender. I do not appreciate any evidence for hepatosplenomegaly nor abnormal masses. LABORATORY/RADIOGRAPHIC EVALUATION This morning I did have Radiology go ahead and place some Gastrografin per his NG and obtain serial x-rays. Contrast did eventually begin to exit the stomach and into the small bowel. There was, however, a component of some delayed gastric emptying and contrast was still seen in the stomach several hours after instillation consistent with a component of ongoing gastric outlet obstruction secondary to his known prepyloric ulcer. ASSESSMENT 71-year-old gentleman with gastric outlet obstruction secondary to peptic ulcer disease. Patient making improvement. PLAN Will go ahead and obtain plain film of his abdomen tomorrow. If the majority of the contrast has exited out of his stomach, will then go ahead and remove his NG and continue with liquid diet. Hopefully we will be able to slowly advance his diet as the week progresses. I overall am pleased with the patient' s progress. [facility]
[2017-06-30] MEDS: PRAMIPEXOLE 1 MG TABLET PO SCH (21:09)
[2017-06-30] MEDS: ATORVASTATIN 20 MG TABLET PO SCH (21:09)
[2017-06-30] MEDS: GABAPENTIN 600 MG TABLET PO SCH (21:13)
[2017-07-01] MEDS: MORPHINE SULFATE 4mg INJECTION IVP PRN ×4 (03:29→22:26)
[2017-07-01] MEDS: SALINE FLUSH 10ml SYRINGE IV PRN ×9 (03:29→22:28)
[2017-07-01] MEDS: LEVOTHYROXINE 200 MCG TABLET PO SCH (05:53)
--- NOTE | 2017-07-01 07:42 | Pharmacy Consult-TPN/PPN ---
Pharmacy Consult-TPN/PPN - Laboratory Information Chemistry Turbidity < 20 (0-20) 07/01/17 04:35 Sodium 136 MEQ/L (134-144) 07/01/17 04:35 Potassium 4.6 MEQ/L (3.6-5) 07/01/17 04:35 Chloride 102 MEQ/L (98-107) 07/01/17 04:35 Carbon Dioxide 26 MEQ/L (22-30) 07/01/17 04:35 Anion Gap 8 meq/L (5-15) 07/01/17 04:35 BUN 22.0 MG/DL (9-20) H 07/01/17 04:35 Creatinine 0.9 mg/dL (0.8-1.5) 07/01/17 04:35 GFR Calculation 83 07/01/17 04:35 BUN/Creatinine Ratio 24 RATIO (6-26) 07/01/17 04:35 Glucose 95 MG/DL (75-110) 07/01/17 04:35 Glucometer 139 mg/dL (65-110) 06/30/17 06:19 Hemoglobin A1c 5.4 % (4.0-5.7) 06/24/17 14:16 Calculated Osmolality 265 MOSM/KG (261-280) 07/01/17 04:35 Calcium 8.4 MG/DL (8.4-10.2) 07/01/17 04:35 Phosphorus 3.8 MG/DL (2.5-4.5) 06/30/17 03:53 Magnesium 2.3 MG/DL (1.6-2.3) 06/30/17 03:53 Iron 43 ug/dL (49-181) L 06/24/17 14:16 Ferritin 8.18 ng/mL (18-464) L 06/24/17 14:16 Total Bilirubin 1.20 MG/DL (0.20-1.30) 06/28/17 04:29 Conjugated Bilirubin 0.00 mg/dL (0.00-0.30) 06/24/17 14:16 Unconjugated Bilirubin 0.60 mg/dL (0.00-1.1) 06/24/17 14:16 Icterus Index < 2 (0-7) 07/01/17 04:35 AST 20 U/L (17-59) 06/28/17 04:29 ALT 17 U/L (1-50) 06/28/17 04:29 Alkaline Phosphatase 58 U/L (38-126) 06/28/17 04:29 C-Reactive Protein < 5.0 mg/L (0-9) 06/24/17 14:16 Total Protein 5.8 g/dL (6.3-8.2) L 06/28/17 04:29 Albumin 3.2 g/dL (3.5-5.0) L 06/30/17 03:53 Globulin 2.5 G/DL (2.4-3.6) 06/28/17 04:29 Albumin/Globulin Ratio 1.3 RATIO (1.1-2.2) 06/28/17 04:29 Prealbumin 15.7 mg/dL (17.6-36.0) L 06/24/17 14:16 Lipase 281 U/L (23-300) 06/24/17 14:16 Vitamin B12 > 1000 pg/mL (239-931) H 06/24/17 14:16 TSH 9.43 mIU/L (0.47-4.68) H 06/24/17 14:16 Free T4 1.59 ng/dL (0.78-2.19) 06/26/17 05:16 Free T3 2.34 PG/ML (2.77-5.27) L 06/26/17 05:16 Specimen Hemolysis < 15 (0-25) 07/01/17 04:35 Intake and Output 06/30/17 07/01/17 07/02/17 06:59 06:59 06:59 Intake Total 3069.6364 / 3069.6364 1736.6364 / 1736.6364 Output Total 2059 / 2059 1070 / 1070 300 / 300 Balance 1009.6364 / 1009.6364 666.6364 / 666.6364 -300 / -300 Weight 67.7 kg Intake: IV 3069.6364 / 3069.6364 1186.6364 / 1186.6364 Fat Emulsion 20% 100 ml @ 50 100 / 100 100 / 100 mls/hr IV 1800 [facility] Rx#: [id number] NS with KCL 20 mEq 1,000 ml @ 722 / 722 301.5 / 301.5 30 mls/hr IV .Q24H [facility] Rx#: [id number] Sodium Acetate 80 meq Potassium 2247.6364 / 2247.6364 785.1364 / 785.1364 Chloride Inj 40 meq POTASSIUM PHOSPHATE (mEq) 60 meq Magnesium Sulfate Inj 16 meq Calcium Gluconate 9.3 meq Multi -Vit Infusion 10 ml Multi- Trace Elements 1 ml Potassium Acetate Inj 20 meq In TPN - Custom Formula 2,000 ml @ 90 mls/hr IV .[id number] [facility] Rx#: [id number] Oral 550 / 550 Output: Urine 2060 / 2060 1070 / 1070 300 / 300 Other: Urine Appearance Clear Clear Urine Color Yellow Yellow Urine Odor Normal Stool Color Brown Stool Consistency Liquid Soft Size of Bowel Movement Small Moderate # Voids 1 # Bowel Movements 1 1 - Consult Information We will make the following changes to custom TPN formula with respect to this a.m.'s labs. Increase sodium acetate to 100mEq per bag, decrease potassium phosphate to 40mEq per bag, decrease magnesium sulfate to 8mEq per bag and remove all potassium acetate. Peripheral iv fluid has been discontinued yesterday. Continue 20% 100mL fat emulsion daily and continue the TPN rate of 90mL per hour Thanks
--- NOTE | 2017-07-01 08:03 | General Surgery Progress Note ---
Subjective Patient reports: tolerating a regular diet (no nausea), flatus, bowel movement Narrative: States passing a fair amount of flatus, no nausea. He would "like a cookie." On clears with NG clamped since the upper GI yesterday. No abd pain. - Vital Signs Last Vital Signs Temp 97.8 F 06/30/17 23:00 Pulse 56 L 07/01/17 03:00 Resp 16 07/01/17 03:00 BP 123/67 07/01/17 03:00 Pulse Ox 96 07/01/17 03:00 - Laboratory Result Diagrams: 06/30/17 03:53 07/01/17 04:35 - Radiology KUB no contrast in stomach, NG is not fully in stomach, official report pending. - Normal Exam General: awake, alert, oriented Respiratory: clear bilaterally, no labored breathing Abdominal: soft, no guarding, non-tender, other (NG in but KUB shows it to be likely in distal esophagus or barely in the stomach) Psychiatric: normal affect Assessment and Plan (1) Nausea and vomiting in adult Current Visit: Yes Status: Acute (2) Weight loss, unintentional Current Visit: Yes Status: Acute Plan: Seems to be emptying stomach at least somewhat. Talked with Dr. Baxter will DC NG and start full liquids. Hospital Course Summary Disclaimer: The visit summary below is not to be considered part of the above Progress Note. Hospital Course: 06/24/17 Admit to observation status under the care of Dr. Ferrell. Consult Dr. Baxter for surgical evaluation and anticipated endoscopy. NPO status in anticipation of possible surgical evaluation. Initiate NS 100cc/ hr for hydration. Will obtain upper GI/KUB small bowel series per Dr. Baxter with NG tube placement. Labs on admission relatively unremarkable. Hgb 11.3. Will check B12. Monitor closely. No signs of bleeding on exam. History of anemia. Patient denies history of diabetes. Will check A1c now in addition to TSH. Monitor BGMs and sliding scale insulin as needed. Zofran and Reglan for nausea/vomiting. CRP, lipase and TSH pending. Prealbumin borderline mild protein calorie malnutrition. Consider dietary consult prior to discharge. Will continue home medications. Hold home ASA in anticipation of possible endoscopy and current anemia. Monitor blood pressure closely. Recheck labs in AM to monitor blood counts, electrolytes and renal function. Upon discharge, patient's care will be returned to his PCP, Dr. Hewitt and Dr. Baxter. Patient requests to be a Full CODE. 06/25/17 Patient unable to maintain oral hydration. Patient status changed to inpatient. NG tube was placed with suction. He remains NPO. XR small bowel follow through revealed normal intestinal transit time. Dr. Baxter planning on performing an EGD either later today or tomorrow. Will change IVF to NS with 20 KCl at 75cc/hr as potassium trending down (likely to gastric losses from NG suction). Labs stable. B12 pending. Lipase normal. CRP <5. TSH elevated at 9.43. Currently on 200mcg Synthroid. Will check T3 and T4 and consider increasing dosage. Patient denies history of diabetes. A1c 5.4%. Zofran and Reglan for nausea/vomiting. Prealbumin borderline mild protein calorie malnutrition. Consider dietary consult prior to discharge. 06/26/17 OP DAY - EGD with large prepyloric ulcer resulting in gastric outlet obstruction Patient awaiting endoscopy with Dr. Baxter planned for today. Maintain NPO status with current NG tube in place on suction for bowel decompression. Continue IV fluids with NS with KCl at 75cc/hr for hydration. Blood pressure persistently elevated. Will increase home felodipine ER to 10mg daily (home dose 5mg daily) and continue home enalapril 20mg daily. Tolerated EGD well. Finding large prepyloric ulcer resulting in gastric outlet obstruction - source of pt's persistent nausea and vomiting. Dr Baxter recommends continuing NG for bowel decompression, placing PICC line, and starting TPN. Protonix increased to continuous drip. Hold on Carafate as could potentially worsen outlet obstruction. Will stop diclofenac gel secondary to ulcer. 06/27/17 Continue bowel decompression with NG due to GOO. Monitor NG output to help determine when tube can be removed. TPN for nutritional support secondary to inability to provide oral nutrition due to gastric outlet obstruction. Can discontinue IVF. Continue IV Protonix to held heal ulcer. ALL assay results pending and will determine if treatment for H.pylori is needed. Iron and ferritin levels low. Will have pharm give IV iron to help anemia. TSH elevated at 9.43 on admission. Likely Synthroid medication being bound up with increased gastric contents secondary to GOO. 06/28/17 Convert Protonix drip to twice a day dosing IV. Completed IV iron infusion. Continue TPN and NPO status and NG tube. H. pylori result is negative. Patient's home felodipine ER was increased to 10mg daily (increased from 5mg daily) on 06/26/17 but patient prefers continuation of home dose. Thrush present on exam-nystatin suspension initiated. 06/29/17 Continues on Protonix - now IV BID. PICC line placed 06/26/17 with initiation of hyperalimentation. H. pylori result is negative. Pathology is pending. Maintain NPO status with current NG tube in place on suction for bowel decompression- hoping for removal tomorrow. Continue IV fluids with NS with KCl at 30cc/hr for gentle hydration. Completed IV iron infusion. Felodipine 5mg as pt was not willing for that to be increased. Vasotec 20mg. BP is running high. Consider adjusting meds if pt will allow or add Lasix to help offload fluid. He does not appear acutely fluid overloaded. He is on 5mg of Bystolic- could increase that as well. TSH elevated at 9.43 on admission. Currently on 200mcg Synthroid. T3 low 2.34 and T4 1.59. If still NPO tomorrow, consider changing to IV dosing. (Concern medications not being absorbed well due to ulceration. Will hold off on medication changes at this time. Recommend follow up with PCP for recheck TSH in 4-6 weeks.) Mild hyperglycemia intermittently while on TPN. Monitor. 06/30/17 Upper GI is consistent with gastric outlet obstruction secondary to prepyloric ulcer. Dr. Chilel discussed with Dr. Baxter: Will advance diet to clear liquids but leave NG tube in, clamping during times of intake. Continue hyperalimentation. Continue Protonix IV. Discontinue normal saline with potassium.
[2017-07-01] MEDS: GABAPENTIN 300 MG CAPSULE PO SCH ×3 (08:43→16:45)
[2017-07-01] MEDS: METOCLOPRAMIDE 10mg/2ml INJECTION IVP SCH ×4 (08:46→21:01)
[2017-07-01] MEDS: NYSTATIN 500,000 units/5 ml ORAL LIQUID PO SCH ×4 (08:46→21:03)
[2017-07-01] MEDS: MULTI-VITAMIN + MINERAL TABLET PO SCH (08:46)
[2017-07-01] MEDS: PANTOPRAZOLE 40 MG INJECTION IVP SCH ×2 (08:47→21:01)
--- NOTE | 2017-07-01 08:58 | Progress Note ---
- Date 07/01/17 Subjective: Pt seen in follow up of gastric outlet obstruction due to prepyloric ulcer. He has started on clear liquids last night and NG tube has been clamped. He is having no nausea or pain. He only c/o sore throat. He is having a lot of flatus and some liquid stools. Ehsan with surgery was in with pt during my visit and reports 80% likelihood he will get the NG tube removed today. Objective Vital signs: Temperature 97.8 F 06/30/17 23:00 Pulse Rate 56 L 07/01/17 03:00 Respiratory Rate 14 07/01/17 08:40 Blood Pressure 123/67 07/01/17 03:00 Pulse Oximetry 96 07/01/17 03:00 Height/Weight/BMI: Height 1.73 m Weight 67.7 kg Body Mass Index 23.3 - Constitutional Present: no acute distress, well nourished, well developed - Routine HEENT Exam Head: Present: normocephalic, atraumatic - Routine Respiratory Exam Present: CTA bilaterally. Absent: wheezes - Routine Cardiovascular Exam Present: RRR, no murmur - Routine Abdominal Exam Present: soft, non distended, non tender - Routine Extremities Exam Present: no edema, normal capillary refill - Routine Skin Exam Present: dry, warm - Routine Neurological Exam Present: alert, oriented X3 - Routine Lymphatic Exam Lymphatic: Absent: adenopathy - Routine Psychiatric Exam Present: normal affect, cooperative Results - Labs CBC & Chem 7: 06/30/17 03:53 07/01/17 04:35 Microbiology Results: Microbiology 06/26/17 14:16 Gastric Biopsy Helicobacter pylori Rapid Urease - Final Assessment and Plan (1) Nausea and vomiting in adult Current visit: Yes Status: Acute Assessment and Plan: Assessment Prepyloric ulcer with gastritis causing gastric outlet obstruction. H. pylori negative Nausea and vomiting secondary to gastric outlet obstruction. Unintentional weight loss Idiopathic peripheral neuropathy Hypothyroidism Chronic anemia - iron deficiency Suspect secondary to chronic GI blood loss secondary to ulcer. CAD Hypertension Hyperlipidemia Hypogonadism Hypothyroidism-RLL 06/28/17 Insomnia Mitral valve disorder Spinal stenosis Vitamin D deficiency GERD Chronic right heel ulceration Thrush Plan Patient on full liquids this morning. Surgery team to determine further advancement of diet and NG tube status. Continues on IV hyperalimentation. Continue Protonix IV. Still requiring intermittent doses of high risk medication IV morphine to control neuropathic pain. Blood pressures have been normal over the past 24 hours. Labs stable. Surgical path - "ulcerative exudate and marked active gastritis." Consider adding sucralfate. DVT Prophylaxis: SCD's GI Prophylaxis: Protonix Resuscitation Status: Full Code - Physician Narrative Physician: Jenniffer Chilel MD Narrative: Date: 07/01/17 Time: 1335 I have independently evaluated and examined this patient. I reviewed the chart, the patient's history, and the [employer]/PA's documented findings as above. We discussed and formulated the assessment and plan as above with additions as below: Mr. Cloud was seen late in the morning at which time NG tube been removed and he reported good tolerance of liquids overnight without recurrent nausea or abdominal pain. He reported a few gas pains but nothing beyond that and is anxious to advance to full liquids today. He has had no dyspnea or lightheadedness. NAD, alert, ambulating without difficulty Abdomen soft, nontender, bowel sounds present Surgical pathology of ulcer biopsy negative for Helicobacter organisms and demonstrated marked active gastritis AM KUB reviewed by myself-contrast has cleared from the stomach, minimal residual Gastrografin in the colon; nonobstructive bowel gas pattern. Decreased TPN to 50% rate of infusion. Full liquid diet. Resume home pain regimen. Hospital Course Summary Disclaimer: The visit summary below is not to be considered part of the above Progress Note. Hospital Course: 06/24/17 Admit to observation status under the care of Dr. Ferrell. Consult Dr. Baxter for surgical evaluation and anticipated endoscopy. NPO status in anticipation of possible surgical evaluation. Initiate NS 100cc/ hr for hydration. Will obtain upper GI/KUB small bowel series per Dr. Baxter with NG tube placement. Labs on admission relatively unremarkable. Hgb 11.3. Will check B12. Monitor closely. No signs of bleeding on exam. History of anemia. Patient denies history of diabetes. Will check A1c now in addition to TSH. Monitor BGMs and sliding scale insulin as needed. Zofran and Reglan for nausea/vomiting. CRP, lipase and TSH pending. Prealbumin borderline mild protein calorie malnutrition. Consider dietary consult prior to discharge. Will continue home medications. Hold home ASA in anticipation of possible endoscopy and current anemia. Monitor blood pressure closely. Recheck labs in AM to monitor blood counts, electrolytes and renal function. Upon discharge, patient's care will be returned to his PCP, Dr. Hewitt and Dr. Baxter. Patient requests to be a Full CODE. 06/25/17 Patient unable to maintain oral hydration. Patient status changed to inpatient. NG tube was placed with suction. He remains NPO. XR small bowel follow through revealed normal intestinal transit time. Dr. Baxter planning on performing an EGD either later today or tomorrow. Will change IVF to NS with 20 KCl at 75cc/hr as potassium trending down (likely to gastric losses from NG suction). Labs stable. B12 pending. Lipase normal. CRP <5. TSH elevated at 9.43. Currently on 200mcg Synthroid. Will check T3 and T4 and consider increasing dosage. Patient denies history of diabetes. A1c 5.4%. Zofran and Reglan for nausea/vomiting. Prealbumin borderline mild protein calorie malnutrition. Consider dietary consult prior to discharge. 06/26/17 OP DAY - EGD with large prepyloric ulcer resulting in gastric outlet obstruction Patient awaiting endoscopy with Dr. Baxter planned for today. Maintain NPO status with current NG tube in place on suction for bowel decompression. Continue IV fluids with NS with KCl at 75cc/hr for hydration. Blood pressure persistently elevated. Will increase home felodipine ER to 10mg daily (home dose 5mg daily) and continue home enalapril 20mg daily. Tolerated EGD well. Finding large prepyloric ulcer resulting in gastric outlet obstruction - source of pt's persistent nausea and vomiting. Dr Baxter recommends continuing NG for bowel decompression, placing PICC line, and starting TPN. Protonix increased to continuous drip. Hold on Carafate as could potentially worsen outlet obstruction. Will stop diclofenac gel secondary to ulcer. 06/27/17 Continue bowel decompression with NG due to GOO. Monitor NG output to help determine when tube can be removed. TPN for nutritional support secondary to inability to provide oral nutrition due to gastric outlet obstruction. Can discontinue IVF. Continue IV Protonix to held heal ulcer. ALL assay results pending and will determine if treatment for H.pylori is needed. Iron and ferritin levels low. Will have pharm give IV iron to help anemia. TSH elevated at 9.43 on admission. Likely Synthroid medication being bound up with increased gastric contents secondary to GOO. 06/28/17 Convert Protonix drip to twice a day dosing IV. Completed IV iron infusion. Continue TPN and NPO status and NG tube. H. pylori result is negative. Patient's home felodipine ER was increased to 10mg daily (increased from 5mg daily) on 06/26/17 but patient prefers continuation of home dose. Thrush present on exam-nystatin suspension initiated. 06/29/17 Continues on Protonix - now IV BID. PICC line placed 06/26/17 with initiation of hyperalimentation. H. pylori result is negative. Maintain NPO status with current NG tube in place on suction for bowel decompression- hoping for removal tomorrow. TSH elevated at 9.43 on admission. Currently on 200mcg Synthroid. T3 low 2.34 and T4 1.59. If still NPO tomorrow, consider changing to IV dosing. (Concern medications not being absorbed well due to ulceration. Will hold off on medication changes at this time. Recommend follow up with PCP for recheck TSH in 4-6 weeks.) 06/30/17 Upper GI is consistent with gastric outlet obstruction secondary to prepyloric ulcer. Dr. Chilel discussed with Dr. Baxter: Will advance diet to clear liquids but leave NG tube in, clamping during times of intake. Continue hyperalimentation. Continue Protonix IV. Discontinue normal saline with potassium. 07/01/17 Patient on full liquids this morning. Surgery team to determine further advancement of diet and NG tube status. Continues on IV hyperalimentation. Continue Protonix IV. Still requiring intermittent doses of high risk medication IV morphine to control neuropathic pain. Blood pressures have been normal over the past 24 hours. Surgical path - "ulcerative exudate and marked active gastritis." Consider adding sucralfate.
--- NOTE | 2017-07-01 09:29 | XRay Report ---
Indication: gastric outlet obstruction PROCEDURE: XR KUB: Encounter: Initial Comparison: June 26, 2017 Findings: The nasogastric tube has been retracted with the tip now projecting over the thoracic esophagus, barely included in the [id number]. Bowel gas pattern is nonobstructive with residual contrast material seen in the colon. Radiopaque densities projecting over the thigh and left hip area are presumably external to the patient. Degenerative change and scoliosis in the spine. Impression: Retraction of the nasogastric tube into the lower thoracic esophagus. Nonobstructive bowel gas pattern. .
[2017-07-01] MEDS ORDERED: POTASSIUM CHLORIDE IV SCH (12:01)
[2017-07-01] MEDS ORDERED: [UNRECOGNIZED DRUG - OTHER] IV SCH (12:01)
[2017-07-01] MEDS ORDERED: SODIUM ACETATE IV SCH (12:01)
--- NOTE | 2017-07-01 14:02 | Progress Note ---
DATE 07/01/2017 FINDINGS Mr. Cloud was seen this morning on rounds. He states that he is feeling fairly well. He denied any abdominal pain or onset of nausea or vomiting. OBJECTIVE VITALS: Afebrile. Normotensive. Current vitals include temperature 97.8, pulse 56, respirations 14, blood pressure 123/67, SaO2 96% room air. HEENT: Normocephalic. Pupils are equally round and react to light and accommodation. CHEST: Clear to auscultation bilaterally. HEART: Regular rate and rhythm. Normal S1, S2, without gallops, murmurs or clicks. ABDOMEN: Soft, nontender. No evidence for guarding or rebound. LABORATORY/RADIOGRAPHIC EVALUATION The patient did have a KUB obtained this morning. I did not see any residual contrast within the stomach. It did appear that the "gastric bubble" was significantly smaller radiographically. The patient had a BMP obtained today that was unremarkable. ASSESSMENT 71-year-old gentleman with gastric outlet obstruction secondary to peptic ulcer disease. Patient showing clinical and radiographic improvement. PLAN NG was DC'd this morning. Will advance the patient to full liquid diet. Will continue to follow from a clinical standpoint. If the patient is able to tolerate full liquid diet, he may be able to be discharged within the next 24 hours. ?? Will go ahead and add Carafate to medical regimen... ??? NOTE TO DR. WHITE: I was unsure if you wanted that last sentence or not. It sounded like you ended the report but then there was the sentence about Carafate but it didn't sound like you finished the sentence, please advise? Thanks!! Anahy GUERRERO
[2017-07-01] MEDS: FAT EMULSION 20% 100 ML IV SCH (17:53)
[2017-07-01] MEDS: HYDROCODONE/APAP 5mg/325mg TABLET PO PRN (19:54)
[2017-07-01] MEDS: PRAMIPEXOLE 1 MG TABLET PO SCH (21:02)
[2017-07-01] MEDS: ATORVASTATIN 20 MG TABLET PO SCH (21:02)
[2017-07-01] MEDS: GABAPENTIN 600 MG TABLET PO SCH (21:02)
[2017-07-02] MEDS: LEVOTHYROXINE 200 MCG TABLET PO SCH (05:59)
[2017-07-02 08:07] VITALS: BP 124/68; PULSE 56; RESP 20; TEMP 96.4; O2SAT 99
[2017-07-02] MEDS: PANTOPRAZOLE 40 MG INJECTION IVP SCH (08:10)
[2017-07-02] MEDS: METOCLOPRAMIDE 10mg/2ml INJECTION IVP SCH (08:11)
[2017-07-02] MEDS: MULTI-VITAMIN + MINERAL TABLET PO SCH (08:11)
[2017-07-02] MEDS: HYDROCODONE/APAP 5mg/325mg TABLET PO PRN (08:12)
[2017-07-02] MEDS: GABAPENTIN 300 MG CAPSULE PO SCH ×2 (08:12→11:41)
[2017-07-02] MEDS: NYSTATIN 500,000 units/5 ml ORAL LIQUID PO SCH (08:13)
[2017-07-02] MEDS ORDERED: NEOMYCIN/POLYMYXIN/BACITRACIN OINT PACKET TP ONE (12:31)
--- NOTE | 2017-07-02 12:55 | Discharge Summary ---
Discharge Information Date of admission: 06/25/17 10:49 Anticipated date of discharge: 07/02/17 Attending Physician: Jenniffer Chilel MD Primary care physician: Gopal Hewitt II, MD Consults: Consulting Provider: Deyanira White - Discharge Diagnosis (1) Nausea and vomiting in adult Status: Acute Prepyloric ulcer with gastritis causing gastric outlet obstruction. H. pylori negative Nausea and vomiting secondary to gastric outlet obstruction. Unintentional weight loss Idiopathic peripheral neuropathy Hypothyroidism Chronic anemia - iron deficiency CAD Hypertension Hyperlipidemia Hypogonadism Hypothyroidism Insomnia Mitral valve disorder Spinal stenosis Vitamin D deficiency GERD Chronic right heel ulceration Thrush - Procedures Procedures: DATE OF SERVICE: 06/26/2017 SURGEON: DEYANIRA WHITE MD PROCEDURE: Esophagogastroscopy with biopsies from edge of a prepyloric ulcer, biopsies from antrum for ALL assay. POSTOPERATIVE DIAGNOSES: large prepyloric ulceration with associated pyloric stenosis/gastric outlet obstruction. - Laboratory Labs: 06/30/17 03:53 07/02/17 04:47 - Microbiology Microbiology 06/26/17 14:16 Gastric Biopsy Helicobacter pylori Rapid Urease - Final - Radiology Radiology: UPPER GI on 06/30/17 Impression: 1. Tip of the NG tube is located in the distal esophagus, approximately 3 cm from the GE junction. 2. Findings suggestive of possible delayed gastric emptying of dilute Gastrografin with a moderate amount of contrast in the stomach after threehours. 3. The NG tube is approximately 5 cm above the expected location of the GE junction. XR KUB on 06/30/17 Impression: Retraction of the nasogastric tube into the lower thoracic esophagus. Nonobstructive bowel gas pattern. XR small bowel follow through on 06/24/17 Impression: Normal intestinal transit time. - Pathology Pathology report from EGD revealed gastric mucosa with ulcerative exudate. Marked active gastritis. There is no H. pylori. History of Present Illness HPI: Jori Cloud is a pleasant 71-year-old male patient of Dr. White who was directly admitted today, 06/24/17, for further evaluation of abdominal pain. He reports that over the past 3 weeks, he has had a 15 pound, unintentional weight loss. He also reports epigastric fullness with frequent nausea, vomiting and diarrhea. He denies any abdominal pain but does admit to increased bloating and distention. He also states that he has had increased episodes of hiccups and belching. As result of his abdomen feeling "full all the time" as well as his nausea and vomiting, he has had very poor oral intake. He denies any other illnesses. No fevers, chills, chest pain, shortness of breath or dysuria. CT abdomen/pelvis on 06/06/17 revealed significant food products in the stomach concerning for delayed emptying. He was then seen in clinic with Dr. White on 06/20/17 and scheduled for an upper endoscopy for 06/26/17. Subsequently, he returned to clinic this morning, 06/24/17, for re-evaluation of his chronic right heel ulceration and Dr. White expressed concern because of "how bad he looked", requesting that he be admitted to the hospital. He has been following with Dr. White recently for treatment of a chronic right heel ulceration for which he has been on prolonged treatment of various antibiotics, which are all now complete. Dr. Ferrell was contacted and he was directly admitted to observation status for further evaluation including imagining and endoscopy. He is seen immediately upon arrival in his room with his and nurse at the bedside. He denies any current complaints or concerns. He does admit to some dry heaving today but denies any diarrhea or vomiting. He states that his symptoms have improved slightly with the addition of Reglan on 06/20/17. Labs were obtained on arrival and revealed mild anemia (Hgb 11.3) and otherwise unremarkable. Objective Vital signs: Temperature 96.4 F L 07/02/17 08:05 Pulse Rate 56 L 07/02/17 08:05 Respiratory Rate 20 07/02/17 08:12 Blood Pressure 124/68 07/02/17 08:05 Pulse Oximetry 99 07/02/17 08:05 Height/Weight/BMI: Height 1.73 m Weight 71 kg Body Mass Index 23.3 - Constitutional Present: no acute distress, well nourished, well developed, thin - Routine HEENT Exam Head: Present: normocephalic Eye: Present: PERRL. Absent: conjunctival icterus, scleral injection ENT: Present: mucous membranes moist - Routine Respiratory Exam Present: CTA bilaterally - Routine Cardiovascular Exam Present: RRR, S1, S2 - Routine Abdominal Exam Present: soft, normoactive bowel sounds, non distended, non tender - Routine Extremities Exam Present: no edema - Routine Skin Exam Present: intact, dry, warm - Routine Neurological Exam Present: alert, oriented X3, CN II-XII intact, normal speech - Routine Psychiatric Exam Present: normal affect, normal thought process, cooperative Hospital Course This is a general summary of the patient's hospital course. For more details refer to the complete medical record. Hospital course: Mr. Cloud was admitted to observation status on 06/24/17 under the hospitalist service. Dr. White was consulted for EGD. The patient was made nothing by mouth and IV fluids were started. ASA was placed on hold. Labs on admission were stable with a hemoglobin level of 11.3. Anemia workup was ordered: Iron was low at 43, ferritin was low at 8.18. He received IV iron during his hospital course. Vitamin B12 was >1000. By the following day, he was unable to maintain oral hydration and a status was changed to inpatient. Pre-albumin showed mild protein calorie malnutrition An NG tube was inserted. Small bowel follow-through showed normal intestinal transit time. IV fluids were changed to reflecting electrolyte losses. 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 He underwent EGD on 06/26/[address] White. This revealed a large prepyloric ulcer resulting in gastric outlet obstruction. A PICC line was placed and TPN was started. Protonix was increased to twice a day. Initially, Carafate was held as it could potentially worsen outlet obstruction. In addition, diclofenac gel withheld because the ulcer. Blood pressure was elevated and of home felodipine ER was recommended to increase from 5 mg to 10 mg daily, but patient declined. Thrush was noted on 06/28/17 and nystatin was started. TPN was continued through 06/30/17. On that day, his diet was advanced to clear liquids, but NG tube was left in place. By 07/01/17, he was on full liquids without any abdominal pain, nausea or vomiting. His NG tube was discontinued. He continued to do well on 07/02/17 and was stable for discharge. Hemoglobin remained stable, 11.6. His electrolytes were within normal range. He was instructed to he was instructed to increase omeprazole to 40 mg twice daily pending repeat endoscopy in approximately 6 weeks; start taking Carafate 4 times a day (prior to meals and at bedtime) as a second medication to control ulcer; and to hold aspirin until follow up with Dr. Hewitt or until nausea is fully resolved. He was instructed to continue full liquids for one week, then gradually reintroduce soft foods and return to cardiac diet as tolerated. Follow up appointments were arranged at Dr. White's and Dr. Hewitt's offices. He was discharged home in stable condition. Time spent with patient: discharge greater than 30 minutes Resuscitation Status: Full Code Discharge Plan - Discharge Disposition Discharge Date: 07/02/17 Disposition: Discharged Home, Self-Care *Condition: Stable Reason For Visit (Visit label in EMR): Persistnet n/v; gastric ulcer - Discharge Medications *Discharge Medications: New Sucralfate [Carafate] 1 gm PO QID #120 tab Continue Gabapentin 300 mg PO TID Lipitor (atorvastatin) 20 mg tablet 20 mg PO DAILY Bystolic (nebivolol) 5 mg tablet 5 mg PO DAILY felodipine ER 5 mg tablet,extended release 24 hr 5 mg PO DAILY fentanyl 50 mcg/hr transdermal patch 1 patch TD Q72H Neurontin (gabapentin) 600 mg tablet 1,200 mg PO HS tab [place] 5 mg-acetaminophen 325 mg tablet 1 tab PO Q6H PRN PRN Reason: Pain levothyroxine 200 mcg tablet 200 mcg PO DAILY pramipexole 1 mg tablet 1 mg PO HS Testone CIK (testosterone cypionate) 200 mg/mL intramuscular kit 200 mg IM Q2WKS each sildenafil 100 mg tablet 100 mg PO DAILY PRN PRN Reason: Prn Orders Voltaren (Diclofenac) 1 % topical gel 2 g TOP QID aspirin 81 mg tablet,delayed release 81 mg PO DAILY Vasotec (enalapril maleate) 20 mg tablet 20 mg PO DAILY multivitamin,op-sqcq-kozcqzxn tablet 1 tab PO DAILY Changed Metoclopramide [Reglan] 10 mg PO QID PRN 30 Days #120 tab PRN Reason: Nausea Omeprazole 40 mg PO BID #60 capsule.dr Discontinued Levofloxacin [Levaquin] 750 mg PO DAILY Metoclopramide HCl [Reglan] 10 mg PO QID #30 tab - Discharge Packet/Instructions *Diet: Full liquids for one week, then gradually reintroduce soft foods and return to cardiac diet as tolerate *Activity: As tolerate *Pain Management/Treatment: Continue pain management as prior to hospitalization *Wound Care: Not applicable Additional Instructions: 1. Increase omeprazole to 40 mg twice daily pending repeat endoscopy in approximatly 6 weeks. 2. Start taking Carafate 4 times a day (prior to meals and at bedtime) as a second medication to control ulcer. Continue this medication until repeat endoscopy as well. 3. Hold aspirin until you follow up with Dr. Hewitt or until nausea is fully resolved. You have known heart disease and indication to take coated aspirin but I would continue to hold it in the short run. *Expected Signs/Symptoms: Minor nausea, may have sense of fullness if you eat very much as your stomach is used to having nothing in it. *Notify Physician if: Recurrent vomiting, vomiting up blood, significant diarrhea *During Business Hours Contact: Dr. Hewitt or Dr. White's offices *After Business Hours Contact: Call [facility] at [phone] and ask that the on-call physician be paged *Pending Lab/Results: No Pending Lab - Referrals/Follow Up *Referrals/Follow Up: Deyanira White MD [Physician] - 08/01/17 10:15 am (EGD with ulcer, follow up 08/01/17 at 10:15) Gopal Hewitt II, MD [Primary Care Provider] - (1-2 weeks APPOINTMENT 07/11 11:00.) - Patient Handouts Patient Handouts: Peptic Ulcer (GEN) - Dismissal Complete Discharge Instructions are:: Complete Physician Narrative - Narrative Physician: Jenniffer Chilel MD Attestation Narrative: Date: 07/02/17 Time: 1610 I have independently evaluated and examined this patient. I reviewed the chart, the patient's history, and the FASHION INTERN/PA's documented findings as above. We discussed and formulated the assessment and plan as above with additions as below: Mr. Cloud has tolerated full liquid diet without difficulty. He's had no recurrent nausea, vomiting, or abdominal pain. Dr. White has cleared him for discharge home on combined PPI twice a day with Carafate 4 times a day pending repeat EGD in approximately 6 weeks. Examination revealed abdomen to be soft, nontender, and bowel sounds are present. The patient is alert and ambulating in the room without difficulty. Oropharynx is clear and without evidence of residual thrush. Doing well; stable for discharge. PICC line discontinued.
--- NOTE | 2017-07-02 15:36 | Progress Note ---
DATE 07/02/2017 FINDINGS Mr. Cloud was seen this morning on rounds. He states that he is feeling well. He has tolerated full liquids without difficulty. He has had no further abdominal distention, nausea or vomiting. OBJECTIVE VITALS: Afebrile. Normotensive. Current vitals include temperature 96.4, pulse 56, respirations 20, blood pressure 124/68, SaO2 99% room air. HEENT: Normocephalic. Pupils are equally round and react to light and accommodation. CHEST: Clear to auscultation bilaterally. HEART: Regular rate and rhythm. Normal S1, S2, without gallops, murmurs or clicks. ABDOMEN: Palpation of the abdomen reveals it to be soft and nontender. I do not appreciate any evidence for hepatosplenomegaly nor abnormal masses. LABORATORY/RADIOGRAPHIC EVALUATION CMP was obtained and found to be essentially within normal limits. Biopsies from his prior EGD did not reveal any evidence fortunately for a malignancy. He was not found to have evidence for H. pylori. ASSESSMENT 71-year-old gentleman with gastric outlet obstruction secondary to peptic ulcer disease. Patient has made marked improvement with medical management. PLAN DC to home. I would recommend continuing over the next 4-6 weeks with Carafate and a proton pump inhibitor on a b.i.d. basis. I would strongly encourage avoiding all nonsteroidals. Would recommend the patient return back to my office at about a 1-month interval for recheck. Will likely then schedule for a repeat upper endoscopy and document that the prior ulcer has healed and there is no evidence for malignancy. The above plan was discussed with the patient this morning. He understood and agreed. CESAR
[2017-07-02] MEDS ORDERED: PANTOPRAZOLE 40 MG TABLET PO SCH (17:00)
== END 2017-07-02 13:10 | disposition home or self-care (01) | DRG 381 ==
LOC: MED → SUATTDRO 06-25 10:49
PROVIDERS: ADMIT Hospitalist; ATTEND Internal Medicine
PROC: END.EGD (2017-06-26 14:00)